=== PATIENT | female | born 1935 | race Caucasian/White ===

== ENCOUNTER → 2018-02-08 | Outpatient (CLI) | payer MEDICARE, BC ==
[~2018-02-08] MED LIST: ASPIRIN81 M2 PO; CALTRATE 600+D1 EAC1 PO; CENTRUM SILVER1 EAC4 PO; DULCOLAX5 MG PO; LOPRESSOR100 M1 PO; LOVASTATIN 20 M20 MG PO; MAXZIDE-25 MG1 EACH PO; OCUVITE TABLET1 EAC1 PO; OMEGA-31000 MG PO; PROBIOTIC1 EAC1 PO; SENOKOT-S1 TA1 PO; SUPER B COMPLE150 MG PO; VITAMIN D3400 UNIT PO; ZYRTEC10 M5 PO; ZYRTEC10 MG PO
== END ==
LOC: M.RAD 14:05
DX: Z12.31 Encounter for screening mammogram for malignant neoplasm of breast (principal); M81.0 Age-related osteoporosis without current pathological fracture

== ENCOUNTER → 2018-04-27 | Outpatient (CLI) | payer MEDICARE, BC ==
--- NOTE | 2018-04-27 15:46 | 2DMMODE ---
[place] [address] 2 D/M-MODE ECHOCARDIOGRAM Name: ADOLPH RAZA Room: [facility]#: [id number] Admission: 04/27/18 Attend Phys: Kathy Ramirez Discharge: Date of : 31 Date of Service: 04/27/18 1546 Report #: [id number] THIS REPORT FOR: //name// APPROVED REPORT Study performed: 04/27/2018 14:04:21 EXAM: Comprehensive 2D, Doppler, and color-flow Echocardiogram Patient Location: Out-Patient Status: routine BSA: 1.47 HR: 56 bpm BP: 122/66 mmHg Other Information Study Quality: Good Indications Murmur 2D Dimensions IVSd: 9.41 (7-11mm) LVOT Diam: 17.76 (18-24mm) LVDd: 40.24 mm PWd: 7.90 (7-11mm) Ascending Ao: 29.01 (22-36mm) LVDs: 21.45 (25-40mm) Aortic Root: 23.39 mm Volumes Left Atrial Volume (Systole) LA ESV Index: 28.30 mL/m2 Aortic Valve AoV Peak Marquise.: 3.33 m/s AO Peak Gr.: 44.24 mmHg LVOT Max P.12 mmHg AO Mean Gr.: 27.19 mmHg LVOT Mean P.45 mmHg LVOT Max V: 1.01 m/s AO V2 VTI: 92.11 cm LVOT Mean V: 0.74 m/s LUNA (VTI): 0.84 cm2 LVOT V1 VTI: 31.07 cm AI Hopkins: 2.80 m/s2 AI PHT: 493.34 ms Mitral Valve MV Peak Gr.: 9.79 mmHg MV Mean Gr.: 3.20 mmHg E/A Ratio: 1.07 [place] [address] 2 D/M-MODE ECHOCARDIOGRAM Name: ADOLPH RAZA Room: [facility]#: [id number] Admission: 04/27/18 Attend Phys: Kathy Ramirez Discharge: Date of : 31 Date of Service: 04/27/18 1546 Report #: [id number] MV Decel. Time: 211.34 ms MV E Max Marquise.: 1.35 m/s MV PHT: 61.29 ms MVA (PHT): 3.59 cm2 TDI E/Lateral E': 19.29 E/Medial E': 27.00 Medial E' Marquise.: 0.05 m/s Lateral E' Marquise.: 0.07 m/s Pulmonary Valve PV Peak Marquise.: 0.97 m/s PV Peak Gr.: 3.75 mmHg Tricuspid Valve RAP Estimate: 5.00 mmHg TR Peak Gr.: 32.13 mmHg RVSP: 37.13 mmHg PA Pressure: 37.13 mmHg Left Ventricle The left ventricle is normal size. There is normal LV segmental wall motion. There is normal left ventricular wall thickness. Left ventricular systolic function is normal. The left ventricular ejection fraction is within the normal range. LVEF is 60-65%. The left ventricular diastolic function is normal. Right Ventricle The right ventricle is normal size. The right ventricular systolic function is normal. Atria Left atrium is mildly dilated. The right atrium size is normal. Aortic Valve Aortic valve is moderately calcified. Moderate aortic regurgitation. Moderate aortic stenosis. Mitral Valve There is moderate mitral annular calcification. Mild to moderate mitral regurgitation. No evidence of mitral valve stenosis. Tricuspid Valve The tricuspid valve is normal in structure. Mild to moderate [place]icus[place] [address] 2 D/M-MODE ECHOCARDIOGRAM Name: ADOLPH RAZA Room: [facility]#: [id number] Admission: 04/27/18 Attend Phys: Kathy Ramirez Discharge: Date of : 31 Date of Service: 04/27/18 1546 Report #: [id number] Pulmonic Valve The pulmonary valve is normal in structure. Mild pulmonic regurgitation. Great Vessels The aortic root is normal in size. IVC is normal in size and collapses >50% with inspiration. Pericardium There is no pericardial effusion. <Conclusion> The left ventricle is normal size. There is normal left ventricular wall thickness. Left ventricular systolic function is normal. The left ventricular ejection fraction is within the normal range. LVEF is 60-65%. The left ventricular diastolic function is normal. The right ventricle is normal size. Left atrium is mildly dilated. Aortic valve is moderately calcified. Moderate aortic regurgitation. Moderate aortic stenosis. There is moderate mitral annular calcification. Mild to moderate mitral regurgitation. The tricuspid valve is normal in structure. Mild to moderate tricuspid regurgitation. IVC is normal in size and collapses >50% with inspiration. There is no pericardial effusion. There is normal LV segmental wall motion. <ELECTRONICALLY SIGNED> By: Gary Floyd MD, FACC 04/27/18 1546 1546 1546 Gary Floyd MD, FACC /INF
== END ==
LOC: M.CRD 13:41
DX: I08.2 Rheumatic disorders of both aortic and tricuspid valves (principal)

== ENCOUNTER 2018-09-05 09:31 | Emergency (ER) | payer MEDICARE, BC ==
[~2018-09-05] VITALS: Ht 152.4 cm; Wt 53.5 kg
[~2018-09-05 09:31] MED LIST changes: +Senokot-S PO
[2018-09-05] MEDS ORDERED: LOPRESSOR100 M1 PO (11:06)
[2018-09-05 12:01] VITALS: BP 198/52
== END 2018-09-05 12:01 | disposition home or self-care (01) ==
LOC: M.ERS 09:31
DX: R04.0 Epistaxis (principal); I10 Essential (primary) hypertension; E78.5 Hyperlipidemia, unspecified; M81.0 Age-related osteoporosis without current pathological fracture; Z85.038 Personal history of other malignant neoplasm of large intestine

== ENCOUNTER 2018-09-05 16:31 | Inpatient (IN) | payer MEDICARE, BC ==
[~2018-09-05] VITALS: Ht 147.3 cm; Wt 54.0 kg
--- NOTE | ~2018-09-05 | EEG ---
[address] [address] EEG STUDY REPORT Name: LUZ MARINAZENAIDACURT Gomez Room: [address] IN M.R.#: [id number] Admission: 09/05/18 Attend Phys: Dre Tucker MD Discharge: 09/07/18 Date of : 31 Report #: [id number] THIS REPORT FOR: //name// CC: Dre Ramirez DATE OF SERVICE: 09/07/2018 This patient had an episode of slurred speech. EEG was done by placing the electrode by standard 10-20 system of electrode placement. Both referential and sequential montages were used for recording. Background activity in this patient's EEG is about 10-11 Hz and 40 microvolt. The patient went to sleep and that is associated with bilaterally symmetrical slowing and vertex sharp waves. Throughout the record, no active epileptiform activity was noted. IMPRESSION: This patient's EEG is unremarkable. No nonconvulsive seizures to explain the patient's episode of speech difficulty was noticed during this record. Thank you very much for this referral. By: 1642 [id number] Plunkett MD /nt
--- NOTE | ~2018-09-05 | CON ---
[address] [address] CONSULTATION Name: ADOLPH RAZA Room: [address] IN M.R.#: [id number] Admission: 09/05/18 Attend Phys: Dre Tucker MD Discharge: Date of : 31 Report #: [id number] THIS REPORT FOR: //name// CC: Dre Ramirez DATE OF SERVICE: 09/06/2018 HISTORY OF PRESENT ILLNESS: This is an 82-year-old female patient who was admitted with somewhat of an unusual history. History is not cleared. Apparently, slurred speech and right facial droop was noticed. The patient used to be on baby aspirin. She ran out of it and she had started taking a full aspirin and she had epistaxis and she was sent home and then she came with these symptoms. Symptoms resolved. She was reasonably functional before this episode happened. REVIEW OF SYSTEMS: Positive for hypertension, hyperlipidemia, cataract removal, osteoporosis, and colon cancer. A 14-point review of system was otherwise noncontributory. She still is somewhat confused, but she denies any eye, ENT, cardiac, respiratory, GI, , musculoskeletal, constitutional, dermatological, hematological, psychiatric, throat, allergic symptom associated with present symptomatology. PAST MEDICAL HISTORY: Positive for epistaxis. FAMILY HISTORY: Positive for strokes and she is worried about that. SOCIAL HISTORY: She does not smoke. PHYSICAL EXAMINATION: NEUROLOGIC: Indicate she is alert and responsive. She can follow simple commands. Speech looks intact, but memory and fund of knowledge is diminished. Cranial nerve examination 2-12 does not show any definite abnormality. Neuromuscular examination checked for strength, sensation, reflexes and tone is symmetrical. No cerebellar sign. No meningeal sign. LUNGS: The patient does not have any respiratory difficulty. CARDIAC: Showed some murmur. EXTREMITIES: Pulses are palpable. No edema, cyanosis, or jaundice. VITAL SIGNS: Blood pressure is 139/41, respirations 20, pulse is 58, and temperature is 99.8. DIAGNOSTIC DATA: I reviewed this patient's extensive workup including MRI and MRA that does not show any acute stroke. IMPRESSION AND PLAN: I am not sure what the etiology of the patient's symptom is. So far, there is no evidence that this patient had a stroke[place] [address] CONSULTATION Name: LUZ MARINAADOLPH Gomez Room: [address] IN [facility].#: [id number] Admission: 09/05/18 Attend Phys: Dre Tucker MD Discharge: Date of : 33 Report #: [id number] already on aspirin. We will see what LDL shows and see if we need to start the patient on some other treatment. I discussed all of this with the patient. I am going to get an EEG done since MRI did not show any stroke and we need to look for any alternate cause for the patient's symptom. Thank you very much for this referral and if you have any question, please feel free to contact me. By: 1047 [id number] Plunkett MD /nt
[2018-09-05 16:37] VITALS: BP 112/88
[2018-09-05 17:00] LABS: ABSOLUTE BASOPHILS 0.1 thou/uL (0.0-0.2); ABSOLUTE EOSINOPHILS 0.2 thou/uL (0.0-0.7); ABSOLUTE LYMPHOCYTES 2.2 thou/uL (0.8-5.3); ABSOLUTE NEUTROPHILS 6.8 thou/uL (1.6-8.1); EOSINOPHILS 1.9 %; HEMATOCRIT 36.9 % (37.0-47.0); HEMOGLOBIN 12.7 gm/dL (12.0-15.0); LYMPHOCYTES 21.5 %; MCH 31.5 pg (26.0-34.0); MCHC 34.3 g/dL (28.0-37.0); MCV 91.7 fL (80.0-100.0); MONOCYTES 9.7 %; MPV 8.8 fl. (7.2-11.1); NUCLEATED RBCS 0 /100WBC; PLATELET COUNT* 264 thou/uL (150-400); POLYS 65.9 %; RBC 4.02 mil/uL (4.20-5.00); RDW-CV 12.6 % (10.5-14.5); WBC 10.4 thou/uL (4.0-11.0)
[2018-09-05 17:08] LABS: ANION GAP 9 mmol/L (7-16); BUN 36 mg/dL (7-18); CALCIUM 10.2 mg/dL (8.5-10.1); CHLORIDE 101 mmol/L (98-107); CO2 29 mmol/L (21-32); CREATININE 1.5 mg/dL (0.6-1.3); GLUCOSE 118 mg/dL (70-99); POTASSIUM 3.9 mmol/L (3.5-5.1); SODIUM 139 mmol/L (136-145)
[2018-09-05 17:10] LABS: APTT 26.3 Seconds (25.0-31.3); INR 1.1; PROTIME 10.8 Seconds (9.20-11.50)
[2018-09-05 17:17] LABS: ALBUMIN 4.1 g/dL (3.4-5.0); ALKALINE PHOSPHATASE 74 U/L (46-116); SGOT 23 U/L (15-37); SGPT 20 U/L (30-65); TOTAL BILIRUBIN 0.6 mg/dL (<0.1-1.0); TOTAL PROTEIN 7.7 g/dL (6.4-8.2); TROPONIN-I LEVEL <0.06 ng/mL (<0.06)
[2018-09-05 20:56] LABS: URINE BILIRUBIN NEGATIVE (Negative); URINE BLOOD NEGATIVE (Negative); URINE CLARITY CLEAR; URINE COLOR YELLOW; URINE GLUCOSE-RANDOM NEGATIVE (Negative); URINE KETONES NEGATIVE (Negative); URINE LEUKOCYTES-REFLEX NEGATIVE (Negative); URINE NITRITE-REFLEX NEGATIVE (Negative); URINE PROTEIN NEGATIVE (Negative); URINE SPECIFIC GRAVITY 1.015 (1.005-1.030); URINE UROBILINOGEN 0.2 E.U./dl (0.2-1.0)
[2018-09-05 23:52] VITALS: BP 135/42
[2018-09-06 03:04] VITALS: BP 117/30
[2018-09-06 07:06] VITALS: BP 139/41
[2018-09-06 07:58] LABS: HEMATOCRIT 34.6 % (37.0-47.0); HEMOGLOBIN 11.7 gm/dL (12.0-15.0); MCH 31.3 pg (26.0-34.0); MCHC 33.9 g/dL (28.0-37.0); MCV 92.3 fL (80.0-100.0); MPV 8.5 fl. (7.2-11.1); RBC 3.75 mil/uL (4.20-5.00); RDW-CV 12.5 % (10.5-14.5); WBC 8.1 thou/uL (4.0-11.0)
[2018-09-06 08:02] LABS: CALCIUM 8.6 mg/dL (8.5-10.1); CREATININE 1.1 mg/dL (0.6-1.3); MAGNESIUM 1.8 mg/dL (1.8-2.4); POTASSIUM 3.5 mmol/L (3.5-5.1)
[2018-09-06 08:07] LABS: CHOLESTEROL 151 mg/dL (<200); HDL CHOLESTEROL 40 mg/dL (>40); LDL CHOLESTEROL 83 mg/dL (<100); TC:HDL 3.8 Ratio (Not establshd); TRIGLYCERIDE 141 mg/dL (<150); VLDL 28 mg/dL (<40)
[2018-09-06 08:09] LABS: SERUM ASSESSMENT Clear
[2018-09-06 11:01] VITALS: BP 147/46
--- NOTE | 2018-09-06 14:35 | EKG ---
[place] [address] ELECTROCARDIOGRAM REPORT Name: FLOYDADOLPH ANDREWS Room: [place] [address] ADM IN .R.#: [id number] Admission: 09/05/18 Attend Phys: Dre Tucker MD Discharge: Date of : 33 Report #: [id number] THIS REPORT FOR: //name// [facility] ED Test Date: 2018-09-05 Test Time: 16:52:06 Pat Name: ADOLPH RAZA Department: Room: [place] [address] Gender: F [employer] Counselor: PASCALE : 1935 Requested By: Dre Tucker Order Number: [id number] Josesito MD: Tl Sun Measurements Intervals [place] Rate: 50 P: 268 [place]: 127 QRS: 63 QRSD: 99 T: 27 QT: 491 QTc: 448 Interpretive Statements Sinus bradycardia Minimal ST depression, lateral leads No previous ECG available for comparison Electronically Signed On 09-06-2018 14:35:45 CDT by Tl Sun [email or web address] <ELECTRONICALLY SIGNED> By: Tl Sun MD, [facility] 09/06/18 1435 1652 51 Tl Sun MD, FACC /EPI
[2018-09-06 14:50] VITALS: BP 136/35
[2018-09-06 15:05] LABS: GLYCOHEMOGLOBIN (HGB A1C) 5.7 % (4.8-5.6)
--- NOTE | 2018-09-06 16:10 | 2DMMODE ---
[place] [address] 2 D/M-MODE ECHOCARDIOGRAM Name: ADOLPH RAZA Room: [address] IN .R.#: [id number] Admission: 09/05/18 Attend Phys: Dre Tucker, Discharge: Date of : 31 Date of Service: 09/06/18 1610 Report #: [id number] THIS REPORT FOR: //name// APPROVED REPORT Study performed: 09/06/2018 09:51:41 EXAM: Comprehensive 2D, Doppler, and color-flow Echocardiogram Patient Location: In-Patient Status: routine BSA: 1.45 HR: 64 bpm BP: 139/41 mmHg Rhythm: NSR Other Information Study Quality: Good Indications CVA/TIA Echo Enhancing Agent Indication: Rule out Shunt Agent(s) / Amount(s) Used: Agitated Saline 10 cc 2D Dimensions IVSd: 11.49 (7-11mm) LVOT Diam: 15.82 (18-24mm) LVDd: 35.85 mm PWd: 10.42 (7-11mm) Ascending Ao: 30.68 (22-36mm) LVDs: 16.41 (25-40mm) Aortic Root: 25.38 mm Volumes Left Atrial Volume (Systole) LA ESV Index: 59.50 mL/m2 Aortic Valve AoV Peak Marquise.: 3.96 m/s AO Peak Gr.: 62.73 mmHg LVOT Max P.66 mmHg AO Mean Gr.: 36.75 mmHg LVOT Mean P.17 mmHg LVOT Max V: 1.29 m/s AO V2 VTI: 103.81 cm LVOT Mean V: 0.81 m/s LUNA (VTI): 0.69 cm2 LVOT V1 VTI: 36.[address] [place]: 2.84 m/s2 [place] [address] 2 D/M-MODE ECHOCARDIOGRAM Name: ADOLPH RAZA Room: [address] IN .R.#: [id number] Admission: 09/05/18 Attend Phys: Dre Tucker, Discharge: Date of : 31 Date of Service: 09/06/18 1610 Report #: [id number] AI PHT: 396.90 ms Mitral Valve MV Mean Gr.: 5.43 mmHg E/A Ratio: 0.84 MV Decel. Time: 340.00 ms MV E Max Marquise.: 1.28 m/s MV PHT: 98.60 ms MVA (PHT): 2.23 cm2 TDI E/Lateral E': 25.60 E/Medial E': 25.60 Medial E' Marquise.: 0.05 m/s Lateral E' Marquise.: 0.05 m/s Pulmonary Valve PV Peak Marquise.: 1.05 m/s PV Peak Gr.: 4.42 mmHg Tricuspid Valve RAP Estimate: 5.00 mmHg TR Peak Gr.: 38.05 mmHg RVSP: 43.00 mmHg PA Pressure: 43.00 mmHg Left Ventricle The left ventricle is normal size. There is normal LV segmental wall motion. Mild concentric left ventricular hypertrophy. Left ventricular systolic function is normal. The left ventricular ejection fraction is within the normal range. LVEF is >70%. Grade I - abnormal relaxation pattern. Right Ventricle The right ventricle is normal size. The right ventricular systolic function is normal. Atria Left atrium is severely dilated. Interatrial septum is intact without evidence of ASD or PFO. The right atrium size is normal. Aortic Valve Aortic valve leaflets are moderately thickened. Moderate aortic regurgitation. severe aortic stenosis. Mitral Valve Moderate mitral annular calcification. Moderate mitral regurgitation. No evidence of mitral valve stenosis. [place]ric[place] [address] 2 D/M-MODE ECHOCARDIOGRAM Name: ADOLPH RAZA Room: [address] IN [facility]#: [id number] Admission: 09/05/18 Attend Phys: Dre Tucker, Discharge: Date of : 31 Date of Service: 09/06/18 1610 Report #: [id number] The tricuspid valve is normal in structure. Mild tricuspid regurgitation. estimated pa pressure 45 mm Hg Pulmonic Valve The pulmonary valve is normal in structure. Mild pulmonic regurgitation. Great Vessels The aortic root is normal in size. IVC is normal in size and collapses >50% with inspiration. Pericardium There is no pericardial effusion. <Conclusion> Mild concentric left ventricular hypertrophy. LVEF is >70%. Left atrium is severely dilated. Moderate aortic regurgitation. severe aortic stenosis. Moderate mitral regurgitation. Interatrial septum is intact without evidence of ASD or PFO. Mild tricuspid regurgitation. estimated pa pressure 45 mm Hg <ELECTRONICALLY SIGNED> By: Tl Sun MD, FACC 09/06/18 161 09 09 Tl Sun MD, FACC /INF
[2018-09-06 19:30] VITALS: BP 150/51
[2018-09-07 00:29] VITALS: BP 151/46
[2018-09-07 04:00] VITALS: BP 179/61
[2018-09-07] MEDS ORDERED: ADULT LOW DOSE81 MG PO (10:48)
[2018-09-07 15:47] VITALS: BP 150/43
[2018-09-07 16:12] VITALS: BP 150/43
== END 2018-09-07 16:39 | disposition home or self-care (01) | DRG 69 ==
LOC: M.ERS 16:31 → M.2W 18:26 → M.TBA-ER 18:26 → M.2W 09-06 06:20 → M.TBA-ER 09-06 06:20 → M.2W 09-06 15:09
PROVIDERS: Personal Emergency Response Attendant; ADMIT Internal Medicine
DX: G45.9 Transient cerebral ischemic attack, unspecified (principal); G92 Toxic encephalopathy; N17.0 Acute kidney failure with tubular necrosis; M81.0 Age-related osteoporosis without current pathological fracture; N18.3 Chronic kidney disease, stage 3 (moderate); I27.20 Pulmonary hypertension, unspecified; I08.3 Combined rheumatic disorders of mitral, aortic and tricuspid valves; I12.9 Hypertensive chronic kidney disease with stage 1 through stage 4 chronic kidney disease, or unspecified chronic kidney disease; E78.5 Hyperlipidemia, unspecified; Z98.41 Cataract extraction status, right eye; Z98.42 Cataract extraction status, left eye; Z85.038 Personal history of other malignant neoplasm of large intestine; Z79.82 Long term (current) use of aspirin; Z79.899 Other long term (current) drug therapy; Z82.3 Family history of stroke

== ENCOUNTER 2019-03-22 09:01 | Inpatient (IN) | payer MEDICARE, BC ==
[~2019-03-22] VITALS: Ht 144.8 cm; Wt 54.9 kg
--- NOTE | ~2019-03-22 | CON ---
[address] [address] CONSULTATION Name: ADOLPH RAZA Room: [address] IN ..#: [id number] Admission: 03/22/19 Attend Phys: Jason Suazo Discharge: Date of : 33 Report #: [id number] THIS REPORT FOR: //name// CC: Kathy Sotelo DATE OF SERVICE: 03/23/2019 NEPHROLOGY CONSULTATION CONSULTING PHYSICIAN: Jenelle Sotelo MD REASON FOR NEPHROLOGY CONSULTATION: Acute kidney injury, microscopic hematuria. REASON FOR ADMISSION: The patient was sent to the ED because of abnormal labs and because of blood in her urine. HISTORY OF PRESENT ILLNESS: This is an 83-year-old female who lives by herself. Her son lives close to her, but she has a past medical history of hypertension, hypokalemia, TIA, torticollis, was asked to come to the hospital by her PCP because her labs showed blood in her urine and elevated creatinine of 9.0. Her baseline creatinine 1.1 in 08/2018. Her daughter is at the bedside. The patient is very weak and she is hard of hearing. According to daughter, the patient has not been eating and when she saw her PCP last Thursday, she had lost about 10 pounds since Thanksgiving because of not eating. When the patient presented to the hospital yesterday, her potassium was 2.6 and her creatinine was 9.0, her BUN was 111. She was started on IV fluids. Potassium was replaced. Her creatinine is better this morning 8.1. She does take triamterene/hydrochlorothiazide at home. She states that she takes NSAIDs periodically, but her history is not completely reliable because she cannot remember it. She reports no urinary problems. REVIEW OF SYSTEMS: Limited because of her mental status. ALLERGIES: TO CONTRAST DYE, LIPOSOMAL SHINGRIX. HOME MEDICATIONS: Include aspirin, triamterene/hydrochlorothiazide, lovastatin, cetirizine, metoprolol, Senokot, bisacodyl, multivitamin with minerals. PAST MEDICAL AND SURGICAL HISTORY: Includes hypertension, hyperlipidemia, osteoporosis, ____, colon cancer with colon resection in 07/2013, cataract removal, mitral and tricuspid regurgitation, moderate aortic stenosis. FAMILY HISTORY: Stroke. SOCIAL HISTORY: She lives at home by herself. [place] a [place] [address] CONSULTATION Name: ADOLPH RAZA Jason Room: [address]#: [id number] Admission: 03/22/19 Attend Phys: Jason Suazo Discharge: Date of : 33 Report #: [id number] daughter and son. She does not smoke or take alcohol or use illicit drugs. PHYSICAL EXAMINATION: VITAL SIGNS: Her blood pressure is 156/61, her respiratory rate is 16, her pulse rate is 93, temperature 36.6, her pulse ox is 99%, she is on room air. GENERAL: She is awake, alert and oriented x 3, just slow to respond and she is hard of hearing. HEAD AND EYES: Atraumatic, normocephalic and normal conjunctivae. EARS, NOSE, AND THROAT: Normal ears and nose. Mucous membranes are dry. NECK: No JVD. CHEST: Bilaterally clear to auscultation anteriorly. No crackles or wheezing. CARDIOVASCULAR: S1, S2 normal. No murmurs. ABDOMEN: Soft, nondistended, nontender. Bowel sounds are present. EXTREMITIES: Lower extremities: There is no lower extremity edema. SKIN: Turgor is decreased. Skin is dry. NEUROLOGICAL FUNCTION: She has generalized weakness. PSYCHIATRIC: Mood-peters, she seems to be normal. LABORATORY DATA: Her white count is 11.1, her hemoglobin is 11.7. Her sodium is 138, her potassium is 3.1. Her BUN is 109 and creatinine is 8.1 and other labs were reviewed. IMAGING: Abdominal and pelvic CT scan was reviewed. ASSESSMENT: 1. Acute kidney injury in the setting of volume depletion, severe dehydration and the use of triamterene/hydrochlorothiazide at home. Urine shows evidence of 6-15 wbc's per high-power field, 2+ protein, 3+ blood with 3-10 rbc's per high-power field with hyaline casts. Renal imaging on CT scan showed no hydronephrosis. 2. Hypokalemia because of poor oral intake. 3. Constipation, abdominal CT scan, primary team will be managing that. 4. Anion gap metabolic acidosis with metabolic alkalosis. Former is because of acute kidney injury. The latter is because of intravascular volume depletion. 5. Elevated troponin, will defer to primary for management of that. 6. History of hypertension. Blood pressure is currently controlled. 7. Microscopic hematuria. PLAN: 1. Creatinine so far is improving with IV fluids. 2. Potassium to be replaced. 3. We will send serological workup for hematuria, but looks like her acute kidney injury is related to volume depletion. 4. Strict I's and O's. Her baseline creatinine is 1.1 in 08/2018. [place] [address] CONSULTATION Name: ADOLPH RAZA Jason Room: [address] IN [facility].#: [id number] Admission: 03/22/19 Attend Phys: Jason Suazo Discharge: Date of : 33 Report #: [id number] Thank you for this consultation. We will continue to follow along with you. Discussed with the patient and the patient's daughter. By: 1029 [id number] Samaniego MD /fabi
[~2019-03-22 09:01] MED LIST changes: +ADULT LOW DOSE81 MG PO; +LIPITOR40 MG PO; -LOVASTATIN 20 M20 MG PO
[2019-03-22 09:13] VITALS: BP 108/45
[2019-03-22 09:46] LABS: URINE BILIRUBIN NEGATIVE (Negative); URINE BLOOD 3+ (Negative); URINE CLARITY CLEAR; URINE COLOR YELLOW; URINE GLUCOSE-RANDOM NEGATIVE (Negative); URINE KETONES NEGATIVE (Negative); URINE LEUKOCYTES-REFLEX TRACE (Negative); URINE NITRITE-REFLEX NEGATIVE (Negative); URINE PROTEIN 2+ (Negative); URINE SPECIFIC GRAVITY 1.025 (1.005-1.030); URINE UROBILINOGEN 0.2 E.U./dl (0.2-1.0)
[2019-03-22 09:52] LABS: AMORPHOUS URATES Few /LPF (None Seen); HYALINE CASTS 0-3 Few /LPF (None Seen); MUCUS 4-6 Moderate strn/LPF (None Seen); SQUAMOUS 0-3 Few /LPF (0-3); URINE RBC 3-10 Few /HPF (0-2); URINE WBC-REFLEX 6-15 Few /HPF (0-5)
[2019-03-22 10:16] LABS: ABSOLUTE BASOPHILS 0.1 thou/uL (0.0-0.2); ABSOLUTE EOSINOPHILS 0.3 thou/uL (0.0-0.7); ABSOLUTE LYMPHOCYTES 1.4 thou/uL (0.8-5.3); ABSOLUTE MONOCYTES 0.9 thou/uL (0.0-1.2); ABSOLUTE NEUTROPHILS 8.4 thou/uL (1.6-8.1); BASOPHILS 1.3 %; EOSINOPHILS 2.5 %; HEMATOCRIT 33.7 % (37.0-47.0); HEMOGLOBIN 11.7 gm/dL (12.0-15.0); LYMPHOCYTES 12.9 %; MCH 30.4 pg (26.0-34.0); MCHC 34.7 g/dL (28.0-37.0); MCV 87.8 fL (80.0-100.0); MONOCYTES 8.1 %; MPV 8.7 fl. (7.2-11.1); NUCLEATED RBCS 0 /100WBC; PLATELET COUNT* 452 thou/uL (150-400); POLYS 75.2 %; RBC 3.84 mil/uL (4.20-5.00); RDW-CV 12.7 % (10.5-14.5); WBC 11.1 thou/uL (4.0-11.0)
[2019-03-22 10:19] LABS: CALCIUM 6.6 mg/dL (8.5-10.1)
[2019-03-22 10:21] LABS: POTASSIUM 2.6 mmol/L (3.5-5.1)
[2019-03-22 10:24] LABS: ALBUMIN 3.4 g/dL (3.4-5.0); TOTAL BILIRUBIN 0.5 mg/dL (<0.1-1.0); TOTAL PROTEIN 8.1 g/dL (6.4-8.2)
[2019-03-22 11:58] VITALS: BP 130/43
--- NOTE | 2019-03-22 13:00 | NUR ---
PT TO ROOM 207 VIA CART. PT A&OX4. FAMILY AY BS. PT ORIENTED TO ROOM,CALL LIGHT WITHIN REACH. IVF INFUSING. KCL STARTED. PT REMAINS NPO AT THIS TIME PENDING DR HERRMANN
[2019-03-22 14:00] VITALS: BP 122/40
--- NOTE | 2019-03-22 16:45 | NUR ---
MULTIPLE ATTEMPTS TO PLACE BOYKIN CATHETER UNSUCESSFUL
[2019-03-22 19:00] LABS: CREATININE 8.1 mg/dL (0.6-1.3); POTASSIUM 3.1 mmol/L (3.5-5.1)
[2019-03-22 20:00] VITALS: BP 125/48
[2019-03-23] VITALS: BP 138/43
[2019-03-23 04:00] VITALS: BP 144/57
--- NOTE | 2019-03-23 05:10 | NUR ---
PT RECIEVED ORDER FOR LAXATIVES AND ENEMA. ADMINISTERED AT START OF SHIFT WITH WHICH PRODUCED BOWEL MOVEMENT QUICKLY. PT HAD NUMEROUS BOWEL MOVEMENTS WITH MIX OF LOOSE WATER STOOLS AND HARD ROUND STOOL. PT IS STB BUT DOES NOT USE CALL LIGHT APPROPRIATELY AND ATTEMPTS TO GET UP ALONE BUT IS A HIGH FALL RISK. PT IS CURRENTLY ASLEEP WITH BED ALARM ON AND CALL LIGHT WITHIN REACH. DAUGHTER AT BEDSIDE.
[2019-03-23 08:00] VITALS: BP 156/61
[2019-03-23 11:16] VITALS: BP 123/53
[2019-03-23 15:23] LABS: ALBUMIN 2.8 g/dL (3.4-5.0); PHOSPHORUS* 8.7 mg/dL (2.5-4.9)
[2019-03-23 15:24] LABS: CALCIUM 5.6 mg/dL (8.5-10.1)
[2019-03-23 17:34] VITALS: BP 126/43
[2019-03-23 18:35] LABS: CREATININE 6.6 mg/dL (0.6-1.3); POTASSIUM 3.8 mmol/L (3.5-5.1)
[2019-03-23 18:36] LABS: CALCIUM 5.8 mg/dL (8.5-10.1)
[2019-03-23 20:00] VITALS: BP 138/58
[2019-03-24] VITALS: BP 144/57
[2019-03-24 04:00] VITALS: BP 108/63
--- NOTE | 2019-03-24 05:08 | NUR ---
AT START OF SHIFT IV AND INFILTRATED, PLACED NEW IV TO LEFT HAND. PT DC'D LEFT HAND IV WHEN ATTEMPTING TO GET OUT OF BED. NEW IV PLACED TO LEFT FORARM AND SECURRED. PT MAKING MULTIPLE ATTEMPTS TO GET OUT OF BED, BED ALARM IS ON AND SIDERAILS ARE UP X4. PT C/O ANXIETY AND PAIN, NOTIFIED BRICK AND TILE MAKING MACHINE OPERATOR PHYSICAIN AND AWAITING ORDERS FOR PT. PT IS CURRENTLY ASLEEP WITH BED ALARM ON AND CALL LIGHT WITHIN REACH.
[2019-03-24 05:28] LABS: PHOSPHORUS* 6.9 mg/dL (2.5-4.9)
[2019-03-24 05:36] LABS: CALCIUM 5.5 mg/dL (8.5-10.1)
[2019-03-24 07:00] VITALS: BP 117/54
--- NOTE | 2019-03-24 08:50 | NUR ---
INITAL ASSESSMENT COMPLETED CHARTED. VSS. TRACING SR ON MONITOR. PT DENIES PAIN, CP, SOA, N/V/D. MEDS GIVEN PER EMAR. NO NEW CONCERNS. REFER TO COMPUTER CHARTING FOR FURTHER DETAILS. HOURLY ROUNDING AND FALL PRECAUTIONS IN PLACE FOR PT SAFETY. CLWR.
[2019-03-24 12:16] VITALS: BP 156/59
--- NOTE | 2019-03-24 12:17 | EKG ---
[place] [address] ELECTROCARDIOGRAM REPORT Name: ADOLPH RAZA Room: [address] ADM IN .R.#: [id number] Admission: 03/22/19 Attend Phys: Jason Suazo Discharge: Date of : 31 Report #: [id number] THIS REPORT FOR: //name// [facility] ED Test Date: 2019-03-22 Test Time: 09:14:35 Pat Name: ADOLPH RAZA Department: Room: [facility] Gender: F Needle Control Cheniller: : 1935 Requested By: Matthew Negrete Order Number: [id number] MD: Gary Floyd Measurements Intervals [place] Rate: 60 P: 10 DE: 215 QRS: 46 QRSD: 108 T: -32 QT: 514 QTc: 514 Interpretive Statements Sinus rhythm Atrial premature complex Borderline prolonged DE interval Probable LVH with secondary repol abnrm Prolonged QT interval Baseline wander in lead(s) V2 Compared to ECG 09/05/2018 16:52:06 Atrial premature complex(es) now present Prolonged QT interval now present Sinus bradycardia no longer present ST (T wave) deviation more prominent Electronically Signed On 03-24-2019 12:16:49 VERIFICATION REP by Gary Floyd [email or web address] <ELECTRONICALLY SIGNED> By: Gary Floyd MD, [facility] 03/24/19 1216 3 3 Gary Floyd MD, [facility] /EPI
[2019-03-24 16:06] LABS: COMPLEMENT-C4 35 mg/dL (14-44); IgA 355 mg/dL (64-422); IgG 741 mg/dL (700-1600); IgM 57 mg/dL (26-217)
--- NOTE | 2019-03-24 16:14 | NUR ---
SW met with pt and pt dtr in law Delisa to complete initial assessment, introduce self, and SW role. Pt [place] and does not often wear her hearing aids. Pt and pt dtr in law were talkative. Pt lives alone with her cat Josiah, whom the pt says that the cat helps pt wake up and go to bed everyday. Pt lives in a duplex that is maintenance free. Pt son and dtr in law are supportive and they check on pt everyday. Pt son and dtr in law also help provide meals and drive pt to doctors appts. Pt still drives some to grocery store (pt dtr in law said that they are discussing whether or not pt should continue driving). Pt does not have any DME but now has cane that pt is borrowing from her dtr in law. Pt is concerned with the use of her right arm as it is sore. Pt hopeful to dc home alone soon; pt dtr in law said that pt is not completely aware of pt medical situation. SW to continue to follow to assist with safe dc planning; goal would be for pt to be able to dc home alone with family support at times. Possible need/pt family interest for HH services at dc.
[2019-03-24 17:19] VITALS: BP 129/58
[2019-03-24 20:00] VITALS: BP 141/61
[2019-03-25] VITALS (11 sets, daily range): BP systolic 102–177; BP diastolic 45–83
--- NOTE | 2019-03-25 04:34 | NUR ---
PT DID EXPERINCE SOME ANXIETY AND TROUBLE SLEEPING. RECIEVED ORDER FOR PRN MEDICATION. PT HAS HAD NO EPISODES OF IMPULSIVE BEHAVIORS THIS SHIFT. STATES SHE IS FEELING BETTER AND WANTS TO GO HOME. PT IS CURRENTLY ASLEEP IN BED WITH BED ALARM ON AND CALL LIGHT WITHIN REACH.
[2019-03-25 06:02] LABS: CALCIUM 6.3 mg/dL (8.5-10.1); CREATININE 5.4 mg/dL (0.6-1.3); MAGNESIUM 1.3 mg/dL (1.8-2.4); PHOSPHORUS* 5.2 mg/dL (2.5-4.9); POTASSIUM 3.3 mmol/L (3.5-5.1)
[2019-03-25 13:12] LABS: ANA INTERPRETATION Negative (Negative)
[2019-03-25 15:08] LABS: KAPPA FREE LIGHT CHAINS 62.7 mg/L (3.3-19.4); LAMBDA FREE LIGHT CHAINS 21.3 mg/L (5.7-26.3)
[2019-03-25 17:37] LABS: HEMATOCRIT 28.2 % (37.0-47.0); HEMOGLOBIN 9.7 gm/dL (12.0-15.0); MCH 30.8 pg (26.0-34.0); MCHC 34.5 g/dL (28.0-37.0); MCV 89.3 fL (80.0-100.0); MPV 8.6 fl. (7.2-11.1); RBC 3.16 mil/uL (4.20-5.00); RDW-CV 12.8 % (10.5-14.5); WBC 13.9 thou/uL (4.0-11.0)
[2019-03-25 17:45] LABS: CALCIUM 7.8 mg/dL (8.5-10.1); MAGNESIUM 2.8 mg/dL (1.8-2.4); POTASSIUM 3.6 mmol/L (3.5-5.1)
[2019-03-25 17:46] LABS: INR 1.3; PROTIME 12.8 Seconds (9.20-11.50)
--- NOTE | 2019-03-25 20:10 | NUR ---
PATIENT ASLEEP IN BED WITH FAMILY AT BEDSIDE. PATIENT AMBULATING WITH ASSISTANCE, GAIT BELT, AND WALKER THIS MORNING IN ROOM. ALL SAFETY MEASURES MAINTAINED. DR. LAI AND CHARGE NURSE NOTIFIED OF ABNORMAL TELE READINGS. NEW ORDERS RECEIVED.
[2019-03-25 22:06] LABS: HEPATITIS B SURFACE AG Negative (Negative)
[2019-03-26] VITALS (7 sets, daily range): BP systolic 103–163; BP diastolic 47–73
--- NOTE | 2019-03-26 02:31 | NUR ---
PT INITALLY DROWSEY ORIENTED. BECAME MORE CONFUSED NIGHT PROGRESSED. REORIENTS EASILY. INITAL ASSESSMENT NABICARB HANGING BUT NOT INFUSING. RN SAW ORDER FOR IT IN MAY. CALLED DR LAI TO MAKE SURE IT DID NOT GET DC'D. MEDICATION NOT DC'D. IV PLACED AND NABICARB RESTARTED. DR LAI ALSO ORDERED TROP SERIES. CAME BACK CRITICAL AT 3.62. DR NICHOLS NOTIFIED. MORPHINE ORDERED FOR CHRONIC R SHOULDER PAIN. PT REFUSED MORPHINE. HEPARIN QTT INFUSING. PT CALLED OUT SHE HAD DC'D IV. IV REPLACED. BOYKIN WITH CLEAR YELLOW. TELEMETRY SHOWS AFIB 90S. WCTM.
[2019-03-26 07:05] LABS: CALCIUM 6.6 mg/dL (8.5-10.1); CREATININE 4.3 mg/dL (0.6-1.3)
[2019-03-26 07:22] LABS: POTASSIUM 2.7 mmol/L (3.5-5.1)
[2019-03-26 10:10] LABS: POTASSIUM 3.1 mmol/L (3.5-5.1)
--- NOTE | 2019-03-26 10:17 | CON ---
[address] [address] CONSULTATION Name: ADOLPH RAZA Room: [address] IN ..#: [id number] Admission: 03/22/19 Attend Phys: Jason Suazo Discharge: Date of : 33 Report #: [id number] THIS REPORT FOR: //name// CC: Kathy Sotelo CARDIOLOGY CONSULTATION HISTORY OF PRESENT ILLNESS: The patient is a pleasant 83-year-old female, admitted on 03/22/2019 because of renal failure and electrolyte imbalance. In the hospital, she has demonstrated both atrial dysrhythmias and this afternoon ventricular tachycardia and thus, we were asked to see her. She denies chest discomfort, but notes some dyspnea. She denies history of prior myocardial infarction. Today, the patient was noted to be hypokalemic and hypomagnesemic and received bolus as well as calcium infusion. PHYSICAL EXAMINATION: GENERAL: Reveals a modestly distressed, hard of hearing, elderly female. VITAL SIGNS: Blood pressure is 120/70, pulse rate is 123 and regular, and respirations are 22 per minute. NECK: Jugular venous pressure is difficult to ascertain. CHEST: Clear anteriorly. CARDIAC: Reveals a rapid regular rhythm with a soft systolic murmur. ABDOMEN: Mildly obese and nontender. EXTREMITIES: Satisfactorily perfused. LABORATORY DATA: Electrocardiogram from this afternoon demonstrates sinus rhythm, nonspecific intraventricular conduction delay, and inferior ST segment elevation with high lateral depression suggesting acute inferior wall injury. Rhythm strips were reviewed. There is evidence of ventricular tachycardia at a rate of greater than 150 for approximately 2 minutes. Creatinine is elevated at 5.4. Magnesium is suppressed at 1.3. IMPRESSION: 1. Ventricular tachycardia. 2. Probable acute inferior wall myocardial infarction. 3. Renal failure with recent creatinine of 5.4. 4. Electrolyte imbalance with hypokalemia and hypomagnesemia. RECOMMENDATIONS: [address] [place] [address] CONSULTATION Name: ADOLPH RAZA Room: [address] IN [facility]#: [id number] Admission: 03/22/19 Attend Phys: Jason Suazo Discharge: Date of : 33 Report #: [id number] 1. Given the overall circumstance, I would not recommend proceeding with an invasive evaluation. 2. Agree with correction of electrolytes. 3. Would infuse the IV beta blockade to moderate her rate. 4. Attention to fluid balance. 5. Correction of electrolytes is underway. 6. I would not give amiodarone at this point unless there are recurrent episodes of VT after beta blockade and correction of electrolyte imbalance. 7. Echocardiogram is indicated. 8. Would proceed with heparinization, antiplatelet therapy and beta blockade as noted above. Critical care time is 32 minutes from [id number] on 03/25/2019. <ELECTRONICALLY SIGNED> By: Gary Floyd MD, [facility] 03/26/19 1017 1632 [id number] Floyd MD, FACC /nt
[2019-03-26 12:35] LABS: HEMATOCRIT 25.8 % (37.0-47.0); MCH 30.9 pg (26.0-34.0); MCHC 34.8 g/dL (28.0-37.0); MCV 88.6 fL (80.0-100.0); MPV 9.2 fl. (7.2-11.1); NUCLEATED RBCS 0 /100WBC; PLATELET COUNT* 333 thou/uL (150-400); RBC 2.92 mil/uL (4.20-5.00); RDW-CV 12.8 % (10.5-14.5); WBC 11.3 thou/uL (4.0-11.0)
[2019-03-26 13:16] LABS: ABSOLUTE BASOPHILS 0.2 thou/uL (0.0-0.2); ABSOLUTE EOSINOPHILS 0.8 thou/uL (0.0-0.7); ABSOLUTE LYMPHOCYTES 0.6 thou/uL (0.8-5.3); ABSOLUTE MONOCYTES 0.2 thou/uL (0.0-1.2); ABSOLUTE NEUTROPHILS 9.5 thou/uL (1.6-8.1); METAMYELOCYTES 1 %
[2019-03-26 13:18] LABS: ANISOCYTOSIS Occasional; PLATELET ESTIMATE ADEQUATE
[2019-03-26 13:19] LABS: LARGE PLATELETS OCCASIONAL
[2019-03-26 13:20] LABS: BURR CELLS Occasional
[2019-03-26 14:40] LABS: CREATININE 4.6 mg/dL (0.6-1.3); POTASSIUM 3.7 mmol/L (3.5-5.1)
--- NOTE | 2019-03-26 16:27 | NUR ---
ASSUMED CARE OF PT APPROX 0730. REASSESSMENT COMPLETED CHARTED. MEDICATIONS GIVEN CHARTED. SAFTEY PRECAUTIONS IN PLACE, HOURLY ROUNDING. FAMILY AT BEDSIDE THIS MORNING AND AFTERNOON. PT UP TO BESIDE CHAIR THIS AFTERNOON.
--- NOTE | 2019-03-26 18:21 | NUR ---
PLAN OF CARE DISCUSSED WITH PT AND FAMILY. MEDICATIONS AND LABS DISCUSSED WITH PT AND FAMILY. VERBALIZED UNDERSTANDING. SAFTEY PRECAUTIONS IN PLACE.
[2019-03-27 04:00] VITALS: BP 139/54
--- NOTE | 2019-03-27 05:26 | NUR ---
ASSUMED PT CARE AT APPROX 1930. PT IS AWAKE AND ORIENTED X4-FORGETFUL. VSS ON 2L OF O2/NC. ASSESSMENT DONE AND CHARTED. PT IS ABLE TO SLEEP MOST OF THE NIGHT. CAREER PLACEMENT SPECIALIST IN PLACE TRACING SR. PT DENIES PAIN OF THIS TIME. HIGH FALL PRECAUTIONS IN PLACE. CALL LIGHT WITHIN REACH. HOURLY ROUNDING DONE FOR PT SAFETY.
[2019-03-27 06:30] LABS: CALCIUM 8.4 mg/dL (8.5-10.1); CREATININE 4.3 mg/dL (0.6-1.3); POTASSIUM 4.3 mmol/L (3.5-5.1)
[2019-03-27 07:48] VITALS: BP 178/67
[2019-03-27 13:50] VITALS: BP 115/42
[2019-03-27 15:35] LABS: HEMATOCRIT 29.1 % (37.0-47.0); MCH 31.1 pg (26.0-34.0); MCHC 34.5 g/dL (28.0-37.0); MCV 90.2 fL (80.0-100.0); MPV 8.8 fl. (7.2-11.1); RBC 3.23 mil/uL (4.20-5.00); RDW-CV 12.9 % (10.5-14.5); WBC 10.7 thou/uL (4.0-11.0)
[2019-03-27 16:47] VITALS: BP 172/66
--- NOTE | 2019-03-27 18:18 | NUR ---
patinet resting in bed. vss. patinet has had a somewhat improved appetite today. 3 bowel movements today. active bowel sounds. hourly rounding completed for patient safety. possible dc with home health tomorrow
[2019-03-27 20:00] VITALS: BP 140/68
[2019-03-28] VITALS: BP 164/71
[2019-03-28 04:00] VITALS: BP 153/51
--- NOTE | 2019-03-28 04:40 | NUR ---
ASSUMED PT CARE AT APPROX 1930. PT IS AWAKE AND ORIENTED X3-FORGETFUL AT TIMES. VSS ON ROOM AIR. LOGISTICS OFFICER IN PLACE TRACING SR. ASSESSMENT DONE AND CHARTED. PT DENIES PAIN OF THIS TIME, IS ABLE TO SLEEP MOST OF THE NIGHT. CALL LIGHT WITHIN REACH. POSITION CHANGES DONE. HIGH FALL PRECAUTIONS IN PLACE. HOURLY ROUNDING DONE FOR PT SAFETY.
[2019-03-28 05:13] LABS: CALCIUM 8.4 mg/dL (8.5-10.1); CREATININE 3.9 mg/dL (0.6-1.3); POTASSIUM 4.1 mmol/L (3.5-5.1)
[2019-03-28 07:42] VITALS: BP 166/58
[2019-03-28 10:11] LABS: GLOMERULR BASEM MEMBRN AB 2 units (0-20)
--- NOTE | 2019-03-28 11:23 | NUR ---
Long discussion had with Pt and family. Plan is home with HH at mo. CM discussed out of the hospital DNR with Pt, Pt stated that she does not want to be an outside of the hospital DNR, family heard Pt and are in agreement. CM provided Pt with HH list, family to review and let CM know which agency. CM faxed walker order to [facility], therapy can dispense walker at dc, order on the front of the chart. Dtr plans on staying with Pt until the , can stay longer if needed. Private duty list provided. Following.
[2019-03-28 12:00] VITALS: BP 155/60
[2019-03-28 14:08] VITALS: BP 155/60
[2019-03-28 14:10] VITALS: BP 155/60
[2019-03-28] MEDS ORDERED: NORVASC 2.5 MG2.5 M1 PO (14:43)
[2019-03-28] MEDS ORDERED: CALCITRIOL0.5 MCG PO (14:50)
[2019-03-28] MEDS ORDERED: CALCIUM CARBON500 MG PO (14:51)
[2019-03-28] MEDS ORDERED: MIRALAX119 GM PO (14:52)
--- NOTE | 2019-03-28 15:05 | EKG ---
[place] [address] ELECTROCARDIOGRAM REPORT Name: ADOLPH RAZA Room: [address] ADM IN M.R.#: [id number] Admission: 03/22/19 Attend Phys: Jason Suazo Discharge: Date of : 33 Report #: [id number] THIS REPORT FOR: //name// [facility] Test Date: 2019-03-25 Test Time: 15:14:37 Pat Name: ADOLPH RAZA Department: Room: [address] Gender: F Combination Operator: HELEN : 1935 Requested By: Jenelle Sotelo Order Number: [id number] Reading MD: Tl Sun Measurements Intervals [place] Rate: 139 P: ND: QRS: 96 QRSD: 85 T: 184 QT: 265 QTc: 403 Interpretive Statements Atrial fibrillation with rapid V-rate consider inferior infarction Right axis deviation Probable anteroseptal infarct, old Repolarization abnormality, prob rate related Compared to ECG 03/22/2019 09:14:35 Right-axis deviation now present Myocardial infarct finding now present Sinus rhythm no longer present Prolonged QT interval no longer present Electronically Signed On 03-28-2019 15:04:47 CARPENTER RAILCAR by Tl Sun [email or web address] <ELECTRONICALLY SIGNED> By: Tl Sun MD, FAC 03/28/19 1504 1514 1514 Tl Sun MD, [facility] /EPI
--- NOTE | 2019-03-28 15:06 | EKG ---
[place] [address] ELECTROCARDIOGRAM REPORT Name: ADOLPH RAZA Room: [address] ADM IN .R.#: [id number] Admission: 03/22/19 Attend Phys: Jason Suazo Discharge: Date of : 33 Report #: [id number] THIS REPORT FOR: //name// [facility] Test Date: 2019-03-25 Test Time: 16:00:56 Pat Name: ADOLPH RAZA Department: Room: [facility] Gender: F Hand I Blocker: LIZZIE : 1935 Requested By: Jenelle Sotelo Order Number: [id number] Reading MD: Tl Sun Measurements Intervals [place] Rate: 124 P: ID: QRS: 87 QRSD: 90 T: -72 QT: 315 QTc: 453 Interpretive Statements Atrial flutter with predominant 2:1 AV block Probable anterior infarct, age indeterminate consider inferior infarction Electronically Signed On 03-28-2019 15:06:19 POWERHOUSE ELECTRICIAN by Tl Sun [email or web address] <ELECTRONICALLY SIGNED> By: Tl Sun MD, [facility] 03/28/19 1506 1600 1600 Tl Sun MD, FACC /EPI
--- NOTE | 2019-03-28 18:58 | NUR ---
ORDER RECEIVE TO DISCHARGE PATIENT HOME WITH HOME HEALTH SERV[facility]. MED REC, MEDICAITON EDUCATION, STROKE EDUCATION, AND NEED FOR FOLLOQW UP APPOINTMENT WITH RENAL IN 3 WEEEKS WITH LABS 1 WEEK PRIOR COVERED AND STATED UNDERSTOOD BY CHRIS. IV AND TELEMETRY PACK REMOVBED. PATIENT TAKEN VIA WHEELCHAIR WITH FAMILY PORESENT TO AWAITING CAR. DC TIME OF 15:45. HOURLY ROUNDING COMPETED FOR PATIENT SAFETY.
== END 2019-03-28 15:48 | disposition home health service (06) | DRG 280 ==
LOC: M.ERS 09:01 → M.TBA-ER 10:46 → M.2W 10:46
PROVIDERS: Emergency Medicine Emergency Medical Services; Internal Medicine; Internal Medicine Nephrology; ADMIT Internal Medicine
DX: I21.A1 Myocardial infarction type 2 (principal); N17.0 Acute kidney failure with tubular necrosis; E87.3 Alkalosis; I47.2 Ventricular tachycardia; E86.9 Volume depletion, unspecified; E86.0 Dehydration; E83.42 Hypomagnesemia; N13.9 Obstructive and reflux uropathy, unspecified; E83.51 Hypocalcemia; F03.90 Unspecified dementia, unspecified severity, without behavioral disturbance, psychotic disturbance, mood disturbance, and anxiety; D64.9 Anemia, unspecified; I08.3 Combined rheumatic disorders of mitral, aortic and tricuspid valves; N18.9 Chronic kidney disease, unspecified; I12.9 Hypertensive chronic kidney disease with stage 1 through stage 4 chronic kidney disease, or unspecified chronic kidney disease; E87.6 Hypokalemia; I48.91 Unspecified atrial fibrillation; K59.00 Constipation, unspecified; R31.29 Other microscopic hematuria; F41.9 Anxiety disorder, unspecified; E78.5 Hyperlipidemia, unspecified; M81.0 Age-related osteoporosis without current pathological fracture; Z85.038 Personal history of other malignant neoplasm of large intestine; Z90.49 Acquired absence of other specified parts of digestive tract; Z88.7 Allergy status to serum and vaccine; Z91.041 Radiographic dye allergy status; Z86.73 Personal history of transient ischemic attack (TIA), and cerebral infarction without residual deficits; Z79.899 Other long term (current) drug therapy; Z79.82 Long term (current) use of aspirin; Z82.3 Family history of stroke; Z98.49 Cataract extraction status, unspecified eye

== ENCOUNTER → 2019-04-21 | Outpatient (CLI) | payer MEDICARE, BC ==
[~2019-04-21] MED LIST changes: +CALCITRIOL0.5 MCG PO; +CALCIUM CARBON500 MG PO; +KEFLEX500 M1 PO; +MIRALAX119 GM PO; +NORVASC 2.5 MG2.5 M1 PO
== END ==
LOC: M.CT 12:33
DX: R90.82 White matter disease, unspecified (principal); G93.89 Other specified disorders of brain; I65.29 Occlusion and stenosis of unspecified carotid artery

== ENCOUNTER 2019-04-22 12:33 | Emergency (ER) | payer MEDICARE, BC ==
[~2019-04-22] VITALS: Ht 144.8 cm; Wt 50.4 kg
--- NOTE | ~2019-04-22 | EKG ---
[place] [address] ELECTROCARDIOGRAM REPORT Name: FLOYDJULIANAADOLPH Room: [facility]#: [id number] Admission: 04/22/19 Attend Phys: Discharge: Date of : 33 Date of Service: 04/22/19 1346 Report #: [id number] THIS REPORT FOR: cc: Kathy Ramirez Linda J. DO Epiphany, Epiphany MD ~ THIS REPORT FOR: //name// [facility] ED Test Date: 2019-04-22 Test Time: 13:46:32 Pat Name: ADOLPH RAZA Department: Room: Gender: F Varnish Melter: MARTIN : 1935 Requested By: Raeann Stevenson Order Number: [id number] MD: Measurements Intervals [place] Rate: 61 P: 43 KS: 188 QRS: 84 QRSD: 91 T: -34 QT: 466 QTc: 470 Interpretive Statements Sinus rhythm Borderline right axis deviation Nonspecific repol abnormality, diffuse leads Compared to ECG 03/25/2019 16:00:56 Early repolarization now present Atrial flutter no longer present 2:1 AV block no longer present Myocardial infarct finding no longer present [email or web address] By: 1346 Epiphany EpiphanyMD /TIFF
[~2019-04-22 12:33] MED LIST changes: -KEFLEX500 M1 PO
[2019-04-22 13:21] LABS: ABSOLUTE BASOPHILS 0.1 thou/uL (0.0-0.2); ABSOLUTE EOSINOPHILS 0.3 thou/uL (0.0-0.7); ABSOLUTE LYMPHOCYTES 2.3 thou/uL (0.8-5.3); ABSOLUTE MONOCYTES 0.7 thou/uL (0.0-1.2); ABSOLUTE NEUTROPHILS 6.3 thou/uL (1.6-8.1); BASOPHILS 1.4 %; HEMATOCRIT 28.1 % (37.0-47.0); HEMOGLOBIN 9.5 gm/dL (12.0-15.0); LYMPHOCYTES 23.2 %; MCH 30.6 pg (26.0-34.0); MCV 90.1 fL (80.0-100.0); MONOCYTES 7.5 %; MPV 8.5 fl. (7.2-11.1); NUCLEATED RBCS 0 /100WBC; PLATELET COUNT* 345 thou/uL (150-400); POLYS 64.9 %; RBC 3.12 mil/uL (4.20-5.00); RDW-CV 13.1 % (10.5-14.5); WBC 9.7 thou/uL (4.0-11.0)
[2019-04-22 13:31] LABS: CALCIUM 9.1 mg/dL (8.5-10.1); CREATININE 1.7 mg/dL (0.6-1.3); POTASSIUM 3.2 mmol/L (3.5-5.1)
[2019-04-22 13:36] LABS: ALBUMIN 3.4 g/dL (3.4-5.0); TOTAL BILIRUBIN 0.7 mg/dL (<0.1-1.0); TOTAL PROTEIN 7.5 g/dL (6.4-8.2)
[2019-04-22 14:11] LABS: URINE BILIRUBIN NEGATIVE (Negative); URINE BLOOD NEGATIVE (Negative); URINE CLARITY CLEAR; URINE COLOR YELLOW; URINE GLUCOSE-RANDOM NEGATIVE (Negative); URINE KETONES TRACE (Negative); URINE NITRITE-REFLEX NEGATIVE (Negative); URINE PROTEIN 2+ (Negative); URINE SPECIFIC GRAVITY 1.015 (1.005-1.030)
[2019-04-22 14:12] LABS: URINE LEUKOCYTES-REFLEX 2+ (Negative)
[2019-04-22 14:18] LABS: AMP/METHAMP Negative (Negative); BARBITURATES Negative (Negative); BENZODIAZEPINES Negative (Negative); COCAINE Negative (Negative); METHADONE Negative (Negative); OPIATES Negative (Negative); PCP Negative (Negative); THC Negative (Negative)
[2019-04-22 14:21] LABS: BACTERIA-REFLEX 1-9 Few /HPF (None Seen); CASTS None Seen /LPF (None Seen); CRYSTALS None Seen /LPF (None Seen); MUCUS None Seen strn/LPF (None Seen); SQUAMOUS 4-10 Moderate /LPF (0-3); URINE RBC 3-10 Few /HPF (0-2)
[2019-04-22] MEDS ORDERED: KEFLEX500 M1 PO (14:52)
[2019-04-22 15:00] VITALS: BP 151/48
== END 2019-04-22 15:01 | disposition home or self-care (01) ==
LOC: M.ERS 12:33
PROVIDERS: Nurse Practitioner Family
DX: N39.0 Urinary tract infection, site not specified (principal); I10 Essential (primary) hypertension; E78.5 Hyperlipidemia, unspecified; Z91.041 Radiographic dye allergy status; Z88.7 Allergy status to serum and vaccine; Z88.8 Allergy status to other drugs, medicaments and biological substances

== ENCOUNTER 2019-04-25 07:57 | Inpatient (IN) | payer MEDICARE, BC ==
[~2019-04-25] VITALS: Ht 139.7 cm; Wt 51.2 kg
--- NOTE | ~2019-04-25 | CON ---
[address] [address] CONSULTATION Name: ADOLPH RAZA Jason Room: [address] IN M.R.#: [id number] Admission: 04/25/19 Attend Phys: Dejuan Parish MD Discharge: Date of : 33 Report #: [id number] THIS REPORT FOR: //name// cc: Kathy Ramirez Linda J. DO ~ THIS REPORT FOR: //name// CC: Dejuan Ramirez DO DICTATED BY: Lenore Puente [facility] DATE OF SERVICE: 04/27/2019 PRIMARY CARE PHYSICIAN: Kathy Ramirez DO Please note at the time of this dictation, the patient was seen and physically examined by myself. REASON FOR CONSULTATION: Anemia and difficulty swallowing. HISTORY OF PRESENT ILLNESS: This is an 83-year-old female who presents to the Emergency Room with some chest tightness. She had some increased shortness of breath and she was feeling very weak. The patient has also been noted that she has not had much of an appetite over the past month. She has been noticing for some time that she has had difficulty swallowing, sometimes pills or things may get stuck and then she will regurgitate them later, and she is wondering if her swallowing is adequate or not. She does notice that she does cough some after swallowing. The patient has never had an EGD done. She denies any acid reflux. She does not take any medication for that and denies any nausea or vomiting at this time. The patient is not having any abdominal discomfort. She does state she does have some issues with constipation and that is why she was here earlier in the month and also her kidneys did not work very well. She is now going on a regular basis, soft and formed. She is on a better bowel regimen with some Senokot daily at home. She did have a colonoscopy back in [address] Pettit, but noted to have a fair prep. She had a polyp removed in the sigmoid and internal hemorrhoids, otherwise negative for surveillance given that she had a history of colon cancer several years ago. ALLERGIES: CONTRAST DYE AND SHINGRIX VACCINE. MEDICATIONS FROM HOME: Include Keflex, MiraLax, calcium carbonate, calcitriol, Norvasc, Zyrtec, multivitamin, Senokot, atorvastatin, and metoprolol. PAST MEDICAL HISTORY: Hypertension, hyperlipidemia, osteoporosis, colon cancer with colon resection in 2013, mitral and tricuspid regurgitation, and also aortic stenosis. PAST SURGICAL HISTORY: Colon resection and cataract removal. FAMILY HISTORY: Negative for any GI or female cancers. SOCIAL HISTORY: Lives independently. Denies any alcohol, tobacco, or illegal drug use. REVIEW OF SYSTEMS: A 12-point review of systems is essentially negative except what is mentioned in the HPI. PHYSICAL EXAMINATION: VITAL SIGNS: Temperature 36.6, pulse 65, respirations 17, and blood pressure 150/71. HEART: Irregular rate and rhythm with murmur noted. LUNGS: Diminished, but clear. ABDOMEN: Soft. Positive bowel sounds in all 4 quadrants with no masses or tenderness noted. LABORATORY DATA: Hemoglobin on admission was 10.6 and now is 8.6, white count is 16.5, and platelets 350. GFR is 29. Her BNP was 11,846. Chest x-ray showed some left upper lobe and left lower lobe pneumonitis and cardiomegaly. IMPRESSION: 1. Anemia. 2. Dysphagia. 3. Loss of appetite. 4. Pneumonia. 5. History of constipation. 6. Chronic kidney disease. 7. Congestive heart failure. 8. Personal history of colon cancer back in 2013. PLAN: 1. Video swallow to ensure no aspiration. 2. Labs; ferritin, iron studies, B12, and ESR. 3. Once her pulmonary status improves, we will plan on doing an EGD. 4. We will advance her diet to full liquids. 5. Further recommendations to be made once Dr. Chavez sees the patient later today. Thank you for allowing us to participate in this patient's care. Please do not hesitate to call with any questions in regard to this consult. By: 1103 1255Farabimael Chavez MD /nt
[~2019-04-25 07:57] MED LIST changes: +KEFLEX500 M1 PO
[2019-04-25 08:49] VITALS: BP 134/78
[2019-04-25 09:20] LABS: ABSOLUTE BASOPHILS 0.1 thou/uL (0.0-0.2); ABSOLUTE EOSINOPHILS 0.2 thou/uL (0.0-0.7); ABSOLUTE LYMPHOCYTES 2.5 thou/uL (0.8-5.3); ABSOLUTE MONOCYTES 0.6 thou/uL (0.0-1.2); ABSOLUTE NEUTROPHILS 11.4 thou/uL (1.6-8.1); BASOPHILS 0.6 %; EOSINOPHILS 1.6 %; HEMATOCRIT 32.3 % (37.0-47.0); HEMOGLOBIN 10.6 gm/dL (12.0-15.0); LYMPHOCYTES 16.8 %; MCH 30.1 pg (26.0-34.0); MCHC 32.8 g/dL (28.0-37.0); MCV 91.8 fL (80.0-100.0); MONOCYTES 4.2 %; MPV 8.5 fl. (7.2-11.1); NUCLEATED RBCS 0 /100WBC; POLYS 76.8 %; RBC 3.52 mil/uL (4.20-5.00); RDW-CV 13.1 % (10.5-14.5); WBC 14.8 thou/uL (4.0-11.0)
[2019-04-25 09:23] LABS: PLATELET COUNT* 475 thou/uL (150-400)
[2019-04-25 09:29] LABS: CALCIUM 9.1 mg/dL (8.5-10.1); CREATININE 1.3 mg/dL (0.6-1.3); POTASSIUM 3.5 mmol/L (3.5-5.1)
[2019-04-25 09:36] LABS: APTT 25.2 Seconds (25.0-31.3); INR 1.1; PROTIME 11.6 Seconds (9.20-11.50)
[2019-04-25 09:40] LABS: ALBUMIN 3.8 g/dL (3.4-5.0); TOTAL BILIRUBIN 0.8 mg/dL (<0.1-1.0); TOTAL PROTEIN 8.2 g/dL (6.4-8.2)
--- NOTE | 2019-04-25 11:15 | NUR ---
ER ADMIT TO 213 TELEPHONE REPORT GIVEN PROIR TO ARRIVAL PATIENT ARRIVED VIA CART AND ASSISTED TO BED PATIENT ORIENTED TO AND CALL LIGHT PATIENT DENIUES PAIN FAMILY AT BEDSIDE
[2019-04-25 11:22] VITALS: BP 118/34
[2019-04-25 11:45] VITALS: BP 28/46
[2019-04-25] MEDS ORDERED: KEFLEX500 M1 PO (12:49)
[2019-04-25 15:39] VITALS: BP 90/43
[2019-04-25 17:34] LABS: URINE BILIRUBIN NEGATIVE (Negative); URINE BLOOD NEGATIVE (Negative); URINE CLARITY CLEAR; URINE COLOR YELLOW; URINE GLUCOSE-RANDOM NEGATIVE (Negative); URINE KETONES NEGATIVE (Negative); URINE LEUKOCYTES-REFLEX NEGATIVE (Negative); URINE NITRITE-REFLEX NEGATIVE (Negative); URINE PROTEIN 2+ (Negative); URINE UROBILINOGEN 0.2 E.U./dl (0.2-1.0)
[2019-04-25 17:54] LABS: MUCUS None Seen strn/LPF (None Seen); SQUAMOUS 4-10 Moderate /LPF (0-3)
[2019-04-25 17:55] LABS: CRYSTALS None Seen /LPF (None Seen); HYALINE CASTS 0-3 Few /LPF (None Seen); URINE RBC None Seen /HPF (0-2); URINE WBC-REFLEX 0-5 Rare /HPF (0-5)
[2019-04-25 20:00] VITALS: BP 112/75; BP 126/41
[2019-04-25 23:08] LABS: GLYCOHEMOGLOBIN (HGB A1C) 5.8 % (4.8-5.6)
[2019-04-25 23:41] VITALS: BP 105/45
[2019-04-26 04:19] VITALS: BP 106/45
--- NOTE | 2019-04-26 05:34 | NUR ---
PT HAD EPISODES OF IMPULSIVE BEHAVIOR, ATTEMPTING TO GET UP BY HERSELF. EDUCATED PT ON THE IMPORTANCE OF HAVING STAFF WITH HER WHEN SHE GETS UP TO KEEP HER FROM FALLING. PT HAD INCREASED ANXITY, RECIEVED ORDERS FROM PHYSICIAN FOR PRN MEDICATION. NO OTHER ISSUES NOTED BY PT, CURRENTLY ASLEEP WITH BED ALARM ON AND CALL LIGHT WITHIN REACH.
[2019-04-26 07:30] LABS: HEMATOCRIT 22.7 % (37.0-47.0); MCH 30.9 pg (26.0-34.0); MCHC 34.6 g/dL (28.0-37.0); MCV 89.2 fL (80.0-100.0); MPV 8.2 fl. (7.2-11.1); NUCLEATED RBCS 0 /100WBC; RBC 2.54 mil/uL (4.20-5.00); RDW-CV 13.1 % (10.5-14.5); WBC 13.8 thou/uL (4.0-11.0)
[2019-04-26 07:36] LABS: HEMOGLOBIN 7.8 gm/dL (12.0-15.0); PLATELET COUNT* 290 thou/uL (150-400)
[2019-04-26 07:48] LABS: CALCIUM 8.3 mg/dL (8.5-10.1); CREATININE 1.5 mg/dL (0.6-1.3); POTASSIUM 3.6 mmol/L (3.5-5.1)
[2019-04-26 08:14] LABS: ABSOLUTE LYMPHOCYTES 1.5 thou/uL (0.8-5.3); ABSOLUTE MONOCYTES 0.3 thou/uL (0.0-1.2); PLATELET ESTIMATE ADEQUATE
[2019-04-26 08:15] VITALS: BP 149/61
--- NOTE | 2019-04-26 10:53 | CON ---
[address] [address] CONSULTATION Name: LUZ MARINAADOLPH Room: [address] IN M.R.#: [id number] Admission: 04/25/19 Attend Phys: Dejuan Parish MD Discharge: Date of : 33 Report #: [id number] THIS REPORT FOR: //name// cc: Kathy Ramirez Linda J. DO THIS REPORT FOR: //name// CC: Dejuan Ramirez DO DATE OF SERVICE: 04/25/2019 CARDIOLOGY CONSULTATION HISTORY OF PRESENT ILLNESS: The patient is an 83-year-old single white female who came to the Emergency Room today complaining of chest pain. The patient has an extensive past medical history. She has a history of chronic kidney disease, but has never been dialyzed. She previously had an elevated troponin, felt to be related to myocardial infarction, although she has never had a cardiac catheterization because of her chronic kidney disease. Previous echocardiogram showed severe aortic stenosis. The patient is not very active at this time. She has had multiple hospitalizations here at [facility]. She was actually just admitted here a month ago with chronic kidney disease, elevated troponin. Recently, she has had increasing shortness of breath and cough. She has had a history of edema in the past. Her family brought her to the Emergency Room. She was admitted for further evaluation and treatment. PAST MEDICAL HISTORY: Significant for cataract extraction, colon surgery for cancer, rotator cuff surgery. She has a history of hypertension and hyperlipidemia. MEDICATIONS: Consist of amlodipine, aspirin, Lipitor, and metoprolol. ALLERGIES: SHE HAS ALLERGY TO CONTRAST. FAMILY HISTORY: Her brother had a heart attack. SOCIAL HISTORY: She is , lives in [place], [place]. No smoking or alcohol abuse. REVIEW OF SYSTEMS: She apparently has had a previous stroke. No history of asthma, peptic ulcer disease or liver disease. She has chronic kidney disease, history of colon cancer. No chronic skin condition. PHYSICAL EXAMINATION: GENERAL: Revealed an elderly frail appearing female, lying in bed. She appeared in no acute distress. VITAL SIGNS: She had a blood pressure of 120/60, pulse 60. She is afebrile. HEENT: She was anicteric. Conjunctivae are pink. Mucous members appear dry. NECK: Veins do not appear distended. CHEST: Revealed coarse breath sounds bilaterally. CARDIAC: Regular rate and rhythm, grade 4 systolic ejection murmur along the left sternal border. ABDOMEN: Soft. EXTREMITIES: Had no pitting edema. SKIN: Cool and dry. NEUROLOGIC: Nonfocal. DIAGNOSTIC IMAGING DATA: Her ECG showed a sinus rhythm, nonspecific ST and T-wave changes were noted. Her workup in the Emergency Room today, she had a portable chest x-ray that showed cardiomegaly, mild vascular congestion, possible pneumonitis. Previous CT scan of the head performed last week showed no acute abnormality. LABORATORY WORK: Sodium 142, potassium 3.5, BUN of 15, creatinine is now 1.3. In the past, it has been as high as 9.0. Her glucose is 242. Liver function studies were normal. Troponin is 0.06. BNP is 4866. TSH is 0.8. Her white blood cell count 14.8, hemoglobin 10.6; last month, it was 9.7. The patient had an echocardiogram done last August that showed left ventricular hypertrophy, ejection fraction greater than 70%, left atrial enlargement, severe aortic stenosis with moderate aortic regurgitation. The peak gradient across the aortic valve leaflets was 62 mmHg. There was no evidence of a shunt. IMPRESSION AND RECOMMENDATIONS: 1. Shortness of breath, possible pneumonia. The patient does have severe aortic stenosis. 2. Aortic stenosis. The patient is not a candidate for valve replacement. 3. Hypertension. The patient is on a calcium ronak and beta ronak. 4. Chronic kidney disease. Renal function has improved. 5. History of colon cancer. 6. Previous stroke. 7. Hard of hearing. <ELECTRONICALLY SIGNED> By: Tl Sun MD, FACC 04/26/19 1053 1827 0030Tl Sun MD, FACC /nt
[2019-04-26 11:11] LABS: BE -2.8 mmol/L (-2 to +3); PO2 65.4 mmHg (75.0-100.0)
[2019-04-26 11:13] LABS: PCO2 54.9 mmHg (35.0-45.0); pH 7.269 (7.340-7.450)
[2019-04-26 12:00] VITALS: BP 128/53
--- NOTE | 2019-04-26 15:18 | NUR ---
CM ASSESSMENT: PT KNOWN TO STAFF FROM PREVIOUS VISIT. PT HAS HH WITH [facility] AND 24 [facility]. PT ON BIPAP. PLAN IS TO RETURN HOME WITH HH. CM WILL CONTINUE TO FOLLOW
[2019-04-26 16:00] VITALS: BP 151/43
--- NOTE | 2019-04-26 19:16 | NUR ---
ASSUSMED CARE OF PT APPROX 0730. PT ANXIOUS THIS AM ABOUT HER BREATHING, MEDICATION GIVEN. DR IN THIS AM AND SPOKE WITH PT ABOUT PLAN OF CARE. PER FAMILY PT HAD INCREASED TROUBLE BREATHING AFTER THE DR LEFT, FAMILY REPORTED THEY BELIEVED INCREASED WORK OF BREATHING WAS DUE TO ANXIETY. PTS O2 SAT REPORTED TO NURSE BY RADIO RIGGER TO BE 80% ON 3L NC. RAPID RESPONSE ACTIVATED ON PT AND ORDERS RECIEVED. PT PLACED ON BIPAP BY RESPIRATORY. RESPIRATORY STATUS IMPROVED WITH BIPAP. PT TOLERATED WELL, PT WAS ASLEEP FOR MOST OF THIS SHIFT. AFTER PT WOKE UP SHE WAS PLACED ON 3L NC, TOLERATED WELL. SAFTEY PRECAUTIONS IN PLACE. HOURLY ROUNDED. FAMILY AT BEDSIDE THE WHOLE SHIFT.
[2019-04-26 20:00] VITALS: BP 105/40
[2019-04-27 00:20] VITALS: BP 99/40
[2019-04-27 04:46] VITALS: BP 150/71
--- NOTE | 2019-04-27 05:32 | NUR ---
PT HAS SLEPT MAJORITY OF SHIFT. SHE IS HAVING MORE CONFUSION THIS SHIFT COMPARED TO PRIOR HS SHIFT. BOYKIN HAS RED URINE NOTED. MAINTAINING O2 SATS ON 2L NC. PT IS CURRENTLY ASLEEP WITH BED ALARM ON AND CALL LIGHT WITHIN.
[2019-04-27 06:43] LABS: ABSOLUTE LYMPHOCYTES 1.6 thou/uL (0.8-5.3); ABSOLUTE MONOCYTES 1.1 thou/uL (0.0-1.2); ABSOLUTE NEUTROPHILS 13.7 thou/uL (1.6-8.1); BASOPHILS 0.3 %; EOSINOPHILS 0.2 %; HEMATOCRIT 25.5 % (37.0-47.0); HEMOGLOBIN 8.6 gm/dL (12.0-15.0); LYMPHOCYTES 9.7 %; MCH 30.3 pg (26.0-34.0); MCHC 33.5 g/dL (28.0-37.0); MCV 90.3 fL (80.0-100.0); MONOCYTES 6.9 %; MPV 8.4 fl. (7.2-11.1); NUCLEATED RBCS 0 /100WBC; PLATELET COUNT* 350 thou/uL (150-400); POLYS 82.9 %; RBC 2.83 mil/uL (4.20-5.00); RDW-CV 13.3 % (10.5-14.5); WBC 16.5 thou/uL (4.0-11.0)
[2019-04-27 07:18] LABS: ALBUMIN 3.2 g/dL (3.4-5.0); CALCIUM 8.1 mg/dL (8.5-10.1); CREATININE 1.7 mg/dL (0.6-1.3); POTASSIUM 3.3 mmol/L (3.5-5.1); TOTAL BILIRUBIN 0.8 mg/dL (<0.1-1.0); TOTAL PROTEIN 6.7 g/dL (6.4-8.2)
[2019-04-27 08:00] VITALS: BP 117/42
[2019-04-27 11:37] LABS: % SATURATION 26 % (20-39); IRON 65 ug/dL (50-175)
[2019-04-27 12:00] VITALS: BP 118/44
[2019-04-27 16:00] VITALS: BP 128/50
--- NOTE | 2019-04-27 19:55 | NUR ---
PT A&O x3, FORGETFUL. FAMILY AT THE BEDSIDE THE WHOLE DAY. BOYKIN'S CATH DC'D. PT VOIDED POST BOYKIN REMOVAL. VSS, O2 SUPPORT NC AT 2L/MIN. OUT OF BED, STB ASSIST, USES A WALKER. DIET ADVANCED TO FULL LIQUID, TOLERATING WELL. PASSED XR SWALLOW TEST. BM x2 THIS SHIFT, SOFT IN CONSISTENCY. POTASSIUM REPLACED PER PROTOCOL.
[2019-04-27 20:00] VITALS: BP 136/56
[2019-04-28 00:37] VITALS: BP 159/61
[2019-04-28 04:00] VITALS: BP 167/62
[2019-04-28 05:20] LABS: ABSOLUTE BASOPHILS 0.1 thou/uL (0.0-0.2); ABSOLUTE EOSINOPHILS 0.1 thou/uL (0.0-0.7); ABSOLUTE LYMPHOCYTES 1.4 thou/uL (0.8-5.3); ABSOLUTE MONOCYTES 1.3 thou/uL (0.0-1.2); ABSOLUTE NEUTROPHILS 11.1 thou/uL (1.6-8.1); BASOPHILS 0.9 %; HEMOGLOBIN 9.3 gm/dL (12.0-15.0); LYMPHOCYTES 9.9 %; MCH 30.2 pg (26.0-34.0); MCHC 33.3 g/dL (28.0-37.0); MCV 90.7 fL (80.0-100.0); MONOCYTES 9.4 %; MPV 8.3 fl. (7.2-11.1); NUCLEATED RBCS 0 /100WBC; PLATELET COUNT* 357 thou/uL (150-400); POLYS 78.8 %; RBC 3.09 mil/uL (4.20-5.00); RDW-CV 13.9 % (10.5-14.5); WBC 14.1 thou/uL (4.0-11.0)
[2019-04-28 05:43] LABS: CREATININE 1.6 mg/dL (0.6-1.3); POTASSIUM 3.5 mmol/L (3.5-5.1)
[2019-04-28 05:47] LABS: CALCIUM 8.7 mg/dL (8.5-10.1)
[2019-04-28 08:00] VITALS: BP 174/59
--- NOTE | 2019-04-28 08:19 | NUR ---
PT A+O X 4. FROGETFUL TO USE CALL LIGHT WHEN GETTING UP @ TIMES. BED ALARM ON. PT UP FREQUENTLY THROUGHOUT SHIFT TO URINATE AND THEN HAD SOME LOOS STOOLS THIS AM. NO PAIN REPORTED LA OBSEERVED. CALL LIGHT IN REACH. HOURLY ROUNDING FOR SAFETY.
[2019-04-28 12:56] VITALS: BP 109/44
[2019-04-28 15:59] VITALS: BP 146/57
--- NOTE | 2019-04-28 16:55 | NUR ---
RE: CHF Medication Teaching Saw pt today to discuss CHF medications. Things includes how/when to take, possible side effects etc. The patient indicates they have no questions at this time. Pharmacy is available for further needs/questions. Thank you.
--- NOTE | 2019-04-28 17:06 | NUR ---
I have reviewed the documentation by JAMESON ROQUE from 04/28/19 to 04/28/19 and I concur with it. SUMEET URIARTE
--- NOTE | 2019-04-28 17:56 | 2DMMODE ---
[place] [address] 2 D/M-MODE ECHOCARDIOGRAM Name: LUZ MARINAADOLPH Room: [address] IN [facility]#: [id number] Admission: 04/25/19 Attend Phys: Dejuan Parish, Discharge: Date of : 31 Date of Service: 04/28/19 1755 Report #: [id number] THIS REPORT FOR: cc: Kathy Ramirez Linda J. DO Biggs, F. Douglas MD [facility] ~ APPROVED REPORT Study performed: 04/27/2019 15:45:44 EXAM: Comprehensive 2D, Doppler, and color-flow Echocardiogram Patient Location: In-Patient Room #: [facility] Status: routine BSA: 1.40 HR: 71 bpm BP: 118/44 mmHg Rhythm: NSR Other Information Study Quality: Good Indications Congestive Heart Failure 2D Dimensions IVSd: 13.61 (7-11mm) LVOT Diam: 15.60 (18-24mm) LVDd: 34.19 mm PWd: 12.99 (7-11mm) Ascending Ao: 30.69 (22-36mm) LVDs: 20.94 (25-40mm) Aortic Root: 26.05 mm Volumes Left Atrial Volume (Systole) LA ESV Index: 53.10 mL/m2 Aortic Valve AoV Peak Marquise.: 3.85 m/s AO Peak Gr.: 59.29 mmHg LVOT Max P.46 mmHg AO Mean Gr.: 37.45 mmHg LVOT Mean P.91 mmHg LVOT Max V: 1.06 m/s AO V2 VTI: 100.72 cm LVOT Mean V: 0.62 m/s LUNA (VTI): 0.47 cm2 LVOT V1 VTI: 24.53 cm AI [place]: 2.75 m/s2 [place] [address] 2 D/M-MODE ECHOCARDIOGRAM Name: ADOLPH RAZA Room: [address] IN .R.#: [id number] Admission: 04/25/19 Attend Phys: Dejuan Parish, Discharge: Date of : 31 Date of Service: 04/28/19 1755 Report #: [id number] AI PHT: 353.68 ms Mitral Valve MV Mean Gr.: 5.24 mmHg E/A Ratio: 1.48 MV Decel. Time: 206.40 ms MV E Max Marquise.: 1.75 m/s MV PHT: 59.86 ms MVA (PHT): 3.68 cm2 TDI E/Lateral E': 29.17 E/Medial E': 35.00 Medial E' Marquise.: 0.05 m/s Lateral E' Marquise.: 0.06 m/s Pulmonary Valve PV Peak Marquise.: 0.82 m/s PV Peak Gr.: 2.68 mmHg Tricuspid Valve RAP Estimate: 5.00 mmHg TR Peak Gr.: 46.88 mmHg RVSP: 51.00 mmHg PA Pressure: 51.00 mmHg Left Ventricle The left ventricle is normal size. There is normal LV segmental wall motion. Mild concentric left ventricular hypertrophy. Left ventricular systolic function is normal. The left ventricular ejection fraction is within the normal range. LVEF is 65-70%. Grade II - pseudonormal filling dynamics. Right Ventricle The right ventricle is normal size. The right ventricular systolic function is normal. Atria Left atrium is severely dilated. The right atrium size is normal. Aortic Valve Severe aortic valve sclerosis. Moderate aortic regurgitation. Severe aortic stenosis. Mitral Valve Moderate mitral annular calcification. Moderate mitral regurgitation. Mild mitral stenosis[place] [address] 2 D/M-MODE ECHOCARDIOGRAM Name: ADOLPH RAZA Room: [address] IN [facility]#: [id number] Admission: 04/25/19 Attend Phys: Dejuan Parish, Discharge: Date of : 31 Date of Service: 04/28/19 1755 Report #: [id number] The tricuspid valve is normal in structure. Mild tricuspid regurgitation. Moderate pulmonary hypertension. Pulmonic Valve The pulmonary valve is normal in structure. Mild pulmonic regurgitation. Great Vessels The aortic root is normal in size. IVC is normal in size and collapses >50% with inspiration. Pericardium There is no pericardial effusion. <Conclusion> LVEF is 65-70%. Grade II - pseudonormal filling dynamics. The left ventricle is normal size. Mild concentric left ventricular hypertrophy. There is normal LV segmental wall motion. Left atrium is severely dilated. Severe aortic valve sclerosis. Moderate aortic regurgitation. Severe aortic stenosis. Moderate mitral annular calcification. Moderate mitral regurgitation. Mild mitral stenosis. Mild tricuspid regurgitation. Moderate pulmonary hypertension. Mild pulmonic regurgitation. <ELECTRONICALLY SIGNED> By: Pradip Delvalle MD, FACC 04/28/191754 54 54 Pradip Delvalle MD, FACC /INF
[2019-04-28 20:05] VITALS: BP 139/52
[2019-04-29] VITALS (8 sets, daily range): BP systolic 123–174; BP diastolic 42–55
--- NOTE | 2019-04-29 06:49 | NUR ---
PATIENT PARTIALLY PROGRESSING TOWARDS GOALS: PATIENT SLEEPING MOST OF SHIFT. DENIES PAIN AND DISCOMFORT. NPO AT THIS TIME. CALL LIGHT WITHIN REACH
--- NOTE | 2019-04-29 08:38 | NUR ---
ASSUMED CARE OF PT THIS AM AROUND 0715- CAMPAIGN MARKETING MANAGER IN PLACE ORDERED, TRACING SR- UPON ASSESSMENT PT NOTED TO BE RESTING IN BED- PT A&O X2-3 WITH NOTED CONFUSSION- CONTINENT OF B/B- SBA WITH TRANSFERS- LCTA, RESP EVEN AND UN-LABORED- VSS, O2 SAT 95% ON 2L VIA NC- ABD SOFT/ROUND/NON-TENDER, BS X4 QUADS- LAST BM REPORTED 04/28/19-PT CURRENTLY NPO FOR PLANNED EGD THIS SHIFT- IV NOTED TO RIGHT WRIST INTACT AND SL- BS MONITORED ORDERED- PT DENIES ANY C/O PAIN/DISCOMFORT AT THIS TIME- CALL LIGHT AND PERSONAL BELONGINGS WITH IN REACH- HOURLY ROUNDS IN PLACE R/T SAFETY/NEEDS- ALL NEEDS MET AT THIS TIME-WCTM
[2019-04-29 16:31] LABS: ABSOLUTE BASOPHILS 0.1 thou/uL (0.0-0.2); ABSOLUTE EOSINOPHILS 0.6 thou/uL (0.0-0.7); ABSOLUTE LYMPHOCYTES 2.1 thou/uL (0.8-5.3); ABSOLUTE MONOCYTES 0.8 thou/uL (0.0-1.2); ABSOLUTE NEUTROPHILS 10.6 thou/uL (1.6-8.1); BASOPHILS 0.7 %; EOSINOPHILS 4.1 %; HEMATOCRIT 30.4 % (37.0-47.0); HEMOGLOBIN 10.3 gm/dL (12.0-15.0); LYMPHOCYTES 14.8 %; MCH 30.7 pg (26.0-34.0); MCHC 33.7 g/dL (28.0-37.0); MCV 91.1 fL (80.0-100.0); MONOCYTES 5.5 %; MPV 8.5 fl. (7.2-11.1); NUCLEATED RBCS 0 /100WBC; PLATELET COUNT* 390 thou/uL (150-400); POLYS 74.9 %; RBC 3.34 mil/uL (4.20-5.00); RDW-CV 13.5 % (10.5-14.5); WBC 14.2 thou/uL (4.0-11.0)
[2019-04-29 16:43] LABS: ALBUMIN 3.3 g/dL (3.4-5.0); CALCIUM 8.8 mg/dL (8.5-10.1); CREATININE 1.3 mg/dL (0.6-1.3); POTASSIUM 3.1 mmol/L (3.5-5.1); TOTAL BILIRUBIN 1.3 mg/dL (<0.1-1.0); TOTAL PROTEIN 7.4 g/dL (6.4-8.2)
--- NOTE | 2019-04-30 03:26 | NUR ---
ASSUMED CARE OF PT AT 1900. PT IS ALERT AND ORIENTED. VSS. PERRLA. NO COMPLAINTS OF PAIN. PT IS UP WITH STAND BY ASSIST. PT IS IN SINUS RYTHM ON THE TELEMETRY. PT IS RESTING COMFORTABLY IN BED. RESPIRATIONS ARE EVEN AND NONLABORED. WILL CONTINUE TO MONITOR PT.
[2019-04-30 04:01] VITALS: BP 115/33
[2019-04-30 05:14] LABS: ABSOLUTE BASOPHILS 0.1 thou/uL (0.0-0.2); ABSOLUTE EOSINOPHILS 0.5 thou/uL (0.0-0.7); ABSOLUTE MONOCYTES 0.8 thou/uL (0.0-1.2); ABSOLUTE NEUTROPHILS 9.6 thou/uL (1.6-8.1); BASOPHILS 1.1 %; EOSINOPHILS 3.7 %; HEMATOCRIT 25.8 % (37.0-47.0); HEMOGLOBIN 8.7 gm/dL (12.0-15.0); LYMPHOCYTES 15.2 %; MCH 30.4 pg (26.0-34.0); MCHC 33.5 g/dL (28.0-37.0); MCV 90.6 fL (80.0-100.0); MONOCYTES 6.5 %; MPV 7.6 fl. (7.2-11.1); NUCLEATED RBCS 0 /100WBC; POLYS 73.5 %; RBC 2.85 mil/uL (4.20-5.00); RDW-CV 13.7 % (10.5-14.5)
[2019-04-30 05:18] LABS: PLATELET COUNT* 300 thou/uL (150-400)
[2019-04-30 05:21] LABS: CALCIUM 8.2 mg/dL (8.5-10.1); CREATININE 1.3 mg/dL (0.6-1.3)
[2019-04-30 05:26] LABS: POTASSIUM 4.2 mmol/L (3.5-5.1)
[2019-04-30 08:13] VITALS: BP 143/48
[2019-04-30] MEDS ORDERED: AMOX TR-K CLV1 EAC3 PO (10:12)
[2019-04-30] MEDS ORDERED: FEOSOL325 M1 PO (10:12)
[2019-04-30] MEDS ORDERED: LASIX 20 MG TAB20 MG PO (10:14)
[2019-04-30] MEDS ORDERED: ZESTRIL2.5 MG PO (10:14)
--- NOTE | 2019-04-30 10:48 | NUR ---
ASSUMED CARE OF PT THIS AM AROUND 0715- FOUNTAIN PEN NIBS INSPECTOR IN PLACE ORDERED, TRACING SR- UPON ASSESSMENT PT NOTED TO BE RESTING IN BED- PT A&O X2-3- CONTINENT OF B/B- SBA WITH RW FOR TRANSFERS- LCTA, RESP EVEN AND UN-LABORED- VSS, O2 SAT 96% ON RA- ABD SOFT/ROUND/NON-TENDER, BS X 4 QUADS- LAST BM REPORTED X2 DAYS AGO- IV NOTED TO RIGHT WRIST INTACT AND SL- GOOD PO INTAKE NOTED THIS AM WITH BREAKFAST, BS MONITORED ORDERED- PT DENIES ANY C/O PAIN/DISCOMFORT AT THIS TIME- CALL LIGHT AND PERSONAL BELONGINGS WITH IN REACH- HOURLY ROUNDS IN PLACE R/T SAFETY/NEED- ALL NEEDS MET AT THIS TIME-WCTM
[2019-04-30 12:12] VITALS: BP 134/48
--- NOTE | 2019-05-04 13:44 | EKG ---
[place] [address] ELECTROCARDIOGRAM REPORT Name: ADOLPH RAZA Room: [address] IN M.R.#: [id number] Admission: 04/25/19 Attend Phys: Dejuan Parish, Discharge: 04/30/19 Date of : 31 Date of Service: 04/26/19 0928 Report #: [id number] THIS REPORT FOR: cc: Kathy Ramirez,Tl Montero MD [facility] ~ THIS REPORT FOR: //name// [facility] Test Date: 2019-04-26 Test Time: 09:28:31 Pat Name: ADOLPH RAZA Department: Room: [address] Gender: F Sticker Machine Operator: KF : 1935 Requested By: Dejuan Parish Order Number: [id number] Reading MD: Tl Sun Measurements Intervals [place] Rate: 82 P: 35 SC: 208 QRS: 53 QRSD: 90 T: -50 QT: 442 QTc: 517 Interpretive Statements Sinus rhythm Anteroseptal infarct, age indeterminate Prolonged QT interval Compared to ECG 04/25/2019 08:07:24 Myocardial infarct finding now present Prolonged QT interval now present Electronically Signed On 04-26-2019 11:28:27 TERRAZZO FINISHER by Tl Sun [email or web address] <ELECTRONICALLY SIGNED> By: Tl Sun MD, [facility] 04/26/19 1128 7 7 Tl Sun MD, [facility] /EPI
--- NOTE | 2019-05-04 13:53 | EKG ---
[place] [address] ELECTROCARDIOGRAM REPORT Name: ADOLPH RAZA Room: [address] IN ..#: [id number] Admission: 04/25/19 Attend Phys: Dejuan Parish, Discharge: 04/30/19 Date of : 31 Date of Service: 04/25/19 0807 Report #: [id number] THIS REPORT FOR: cc: Kathy Ramirez,Tl Montero MD [facility] ~ THIS REPORT FOR: //name// [facility] ED Test Date: 2019-04-25 Test Time: 08:07:24 Pat Name: ADOLPH RAZA Department: Room: [facility] Gender: F Manager Physical: [facility] : 1935 Requested By: Matthew Negrete Order Number: [id number] MD: Tl Sun Measurements Intervals [place] Rate: 90 P: 54 VA: 214 QRS: 89 QRSD: 92 T: -49 QT: 385 QTc: 471 Interpretive Statements Sinus rhythm Borderline prolonged VA interval Borderline right axis deviation Borderline low voltage, extremity leads Probable LVH with secondary repol abnrm Compared to ECG 04/22/2019 13:46:32 Poor R-wave progression no longer present LEFT VENTRICULAR HYPERTROPHY noted Electronically Signed On 2-3-2020 11:23:44 SUCTION DREDGE DUMPING SUPERVISOR by Tl Sun [email or web address] <ELECTRONICALLY SIGNED> By: Tl Sun MD, [facility] 04/25/19 1123 6 6 Tl Sun MD, [facility] /EPI
== END 2019-04-30 13:35 | disposition home health service (06) | DRG 177 ==
LOC: M.ERS 07:57 → M.2W 09:52 → M.TBA-ER 09:52 → M.2W 11:35
PROVIDERS: Emergency Medicine Emergency Medical Services; Nurse Practitioner Adult Health; ADMIT Internal Medicine
PROC: 5A09357 Assistance with Respiratory Ventilation, Less than 24 Consecutive Hours, Continuous Positive Airway Pressure (ICD-10-PCS; principal; 2019-04-25)
PROC: 0D758ZZ Dilation of Esophagus, Via Natural or Artificial Opening Endoscopic (ICD-10-PCS; principal; 2019-04-25)
PROC: 5A09357 Assistance with Respiratory Ventilation, Less than 24 Consecutive Hours, Continuous Positive Airway Pressure (ICD-10-PCS; 2019-04-26)
DX: J15.6 Pneumonia due to other Gram-negative bacteria (principal); I50.31 Acute diastolic (congestive) heart failure; J96.90 Respiratory failure, unspecified, unspecified whether with hypoxia or hypercapnia; I13.0 Hypertensive heart and chronic kidney disease with heart failure and stage 1 through stage 4 chronic kidney disease, or unspecified chronic kidney disease; D72.829 Elevated white blood cell count, unspecified; E78.5 Hyperlipidemia, unspecified; D64.9 Anemia, unspecified; N18.3 Chronic kidney disease, stage 3 (moderate); K31.89 Other diseases of stomach and duodenum; H91.93 Unspecified hearing loss, bilateral; I08.3 Combined rheumatic disorders of mitral, aortic and tricuspid valves; K59.00 Constipation, unspecified; R13.10 Dysphagia, unspecified; M81.0 Age-related osteoporosis without current pathological fracture; R31.9 Hematuria, unspecified; I25.2 Old myocardial infarction; Z98.49 Cataract extraction status, unspecified eye; Z88.7 Allergy status to serum and vaccine; Z91.041 Radiographic dye allergy status; Z90.49 Acquired absence of other specified parts of digestive tract; Z79.899 Other long term (current) drug therapy; Z79.82 Long term (current) use of aspirin; Z83.3 Family history of diabetes mellitus; Z80.0 Family history of malignant neoplasm of digestive organs; Z85.038 Personal history of other malignant neoplasm of large intestine; Z86.73 Personal history of transient ischemic attack (TIA), and cerebral infarction without residual deficits

== ENCOUNTER → 2019-05-05 | Outpatient (CLI) | payer MEDICARE, BC ==
[~2019-05-05] MED LIST changes: +AMOX TR-K CLV1 EAC3 PO; +FEOSOL325 M1 PO; +LASIX 20 MG TAB20 MG PO; +ZESTRIL2.5 MG PO
[2019-05-05 15:26] LABS: CREATININE 1.4 mg/dL (0.6-1.3); POTASSIUM 3.2 mmol/L (3.5-5.1)
== END ==
LOC: M.LAB 14:50
PROVIDERS: Registered Nurse
DX: I35.0 Nonrheumatic aortic (valve) stenosis (principal)

== ENCOUNTER 2019-05-23 20:03 | Emergency (ER) | payer MEDICARE, BC ==
[~2019-05-23] VITALS: Ht 139.7 cm; Wt 48.5 kg
[2019-05-23 20:53] LABS: ABSOLUTE EOSINOPHILS 0.5 thou/uL (0.0-0.7); ABSOLUTE LYMPHOCYTES 3.6 thou/uL (0.8-5.3); ABSOLUTE MONOCYTES 0.7 thou/uL (0.0-1.2); ABSOLUTE NEUTROPHILS 3.9 thou/uL (1.6-8.1); BASOPHILS 0.2 %; EOSINOPHILS 5.4 %; HEMATOCRIT 26.5 % (37.0-47.0); HEMOGLOBIN 9.2 gm/dL (12.0-15.0); MCH 31.7 pg (26.0-34.0); MCHC 34.7 g/dL (28.0-37.0); MCV 91.5 fL (80.0-100.0); MONOCYTES 8.2 %; MPV 8.2 fl. (7.2-11.1); NUCLEATED RBCS 0 /100WBC; PLATELET COUNT* 273 thou/uL (150-400); POLYS 45.2 %; WBC 8.7 thou/uL (4.0-11.0)
[2019-05-23 21:00] LABS: CALCIUM 10.6 mg/dL (8.5-10.1); CREATININE 1.3 mg/dL (0.6-1.3); POTASSIUM 3.7 mmol/L (3.5-5.1)
[2019-05-23 21:05] LABS: ALBUMIN 3.5 g/dL (3.4-5.0); TOTAL BILIRUBIN 0.6 mg/dL (<0.1-1.0); TOTAL PROTEIN 6.8 g/dL (6.4-8.2)
[2019-05-23 21:25] LABS: URINE BILIRUBIN NEGATIVE (Negative); URINE BLOOD NEGATIVE (Negative); URINE CLARITY CLEAR; URINE COLOR YELLOW; URINE GLUCOSE-RANDOM NEGATIVE (Negative); URINE KETONES NEGATIVE (Negative); URINE LEUKOCYTES-REFLEX TRACE (Negative); URINE NITRITE-REFLEX NEGATIVE (Negative); URINE PROTEIN NEGATIVE (Negative); URINE SPECIFIC GRAVITY <= 1.005 (1.005-1.030); URINE UROBILINOGEN 0.2 E.U./dl (0.2-1.0)
[2019-05-23 21:32] LABS: BACTERIA-REFLEX None Seen /HPF (None Seen); CASTS None Seen /LPF (None Seen); CRYSTALS None Seen /LPF (None Seen); SQUAMOUS 0-3 Few /LPF (0-3); URINE RBC None Seen /HPF (0-2); URINE WBC-REFLEX 0-5 Rare /HPF (0-5)
[2019-05-23 23:04] VITALS: BP 155/59
--- NOTE | 2019-05-24 11:09 | EKG ---
[place] [address] ELECTROCARDIOGRAM REPORT Name: ADOLPH RAZA Room: [facility]#: [id number] Admission: 05/23/19 Attend Phys: Discharge: 05/23/19 Date of : 31 Date of Service: 05/23/192031 Report #: [id number] THIS REPORT FOR: //name// [facility] ED Test Date: 2019-05-23 Test Time: 20:32:23 Pat Name: ADOLPH RAZA Department: Room: Gender: F Asphalt Smoother: : 1935 Requested By: Otilia Gonzalez Order Number: [id number] Josesito MD: Tl Sun Measurements Intervals [place] Rate: 58 P: 54 [place]: 239 QRS: 41 QRSD: 85 T: -4 QT: 436 QTc: 429 Interpretive Statements Sinus rhythm Prolonged WA interval Consider left atrial enlargement Consider anterior infarct Repol abnrm suggests ischemia, anterolateral Artifact in lead(s) II,III,aVL,aVF,V1,V2,V3,V4,V6 Compared to ECG 04/26/2019 09:28:31 First degree AV block now present Prolonged QT interval no longer present Myocardial infarct finding still present Electronically Signed On 05-24-2019 11:08:12 CLIENT SERVER DEVELOPER by Tl Sun [email or web address] <ELECTRONICALLY SIGNED> By: Tl Sun MD, [facility] 05/24/19 1108 31 31 Tl Sun MD, [facility] /EPI
== END 2019-05-23 23:04 | disposition home or self-care (01) ==
LOC: M.ERS 20:03
PROVIDERS: Emergency Medicine
DX: I11.0 Hypertensive heart disease with heart failure (principal); I50.9 Heart failure, unspecified; E78.5 Hyperlipidemia, unspecified; M81.0 Age-related osteoporosis without current pathological fracture; Z91.041 Radiographic dye allergy status; Z88.8 Allergy status to other drugs, medicaments and biological substances

== ENCOUNTER 2019-08-22 10:22 | Inpatient (IN) | payer MEDICARE, BC ==
[~2019-08-22] VITALS: Ht 144.8 cm; Wt 49.9 kg
[2019-08-22 10:27] VITALS: BP 163/105
[2019-08-22 10:59] LABS: ABSOLUTE BASOPHILS 0.2 thou/uL (0.0-0.2); ABSOLUTE EOSINOPHILS 0.5 thou/uL (0.0-0.7); ABSOLUTE LYMPHOCYTES 4.2 thou/uL (0.8-5.3); ABSOLUTE MONOCYTES 1.6 thou/uL (0.0-1.2); ABSOLUTE NEUTROPHILS 13.1 thou/uL (1.6-8.1); BASOPHILS 1.1 %; EOSINOPHILS 2.4 %; HEMATOCRIT 33.4 % (37.0-47.0); HEMOGLOBIN 11.5 gm/dL (12.0-15.0); LYMPHOCYTES 21.7 %; MCH 31.8 pg (26.0-34.0); MCHC 34.4 g/dL (28.0-37.0); MCV 92.5 fL (80.0-100.0); NUCLEATED RBCS 0 /100WBC; PLATELET COUNT* 319 thou/uL (150-400); POLYS 66.8 %; RBC 3.61 mil/uL (4.20-5.00); WBC 19.5 thou/uL (4.0-11.0)
[2019-08-22] MEDS ORDERED: MEDROL4 MG PO (11:05)
[2019-08-22] MEDS ORDERED: TYLENOL WITH CO1 TA1 PO (11:05)
[2019-08-22 11:09] LABS: APTT 22.5 Seconds (25.0-31.3); CALCIUM 9.9 mg/dL (8.5-10.1); CREATININE 1.4 mg/dL (0.6-1.3); INR 1.1; PROTIME 11.3 Seconds (9.20-11.50)
[2019-08-22 11:13] LABS: POTASSIUM 2.8 mmol/L (3.5-5.1)
[2019-08-22 11:19] LABS: ALBUMIN 3.9 g/dL (3.4-5.0); MAGNESIUM 1.4 mg/dL (1.8-2.4); TOTAL BILIRUBIN 0.9 mg/dL (<0.1-1.0); TOTAL PROTEIN 7.8 g/dL (6.4-8.2)
[2019-08-22 15:53] VITALS: BP 168/53
--- NOTE | 2019-08-22 18:45 | NUR ---
PT ARRIVED TO UNIT AT APPROX 1600 VIA CART, REPORT TAKEN FROM VAISHALI MCKINNEY. PT A&O X4, VSS, SAO2 99% ON 2LPM UPON ARRIVAL, TITRATED OFF O2, STABLE AT 94% RA WITH NO S/S DYSPNEA. PT IS UP WITH WALKER AND STANBY ASSIST. BOYKIN IN PLACE AND DRAINING CLOUDY, BLOOD TINGED URINE. PT DID PULL OUT BOYKIN STATING SHE "FORGOT IT WAS THERE" UPON WAKING UP. BOYKIN REMOVED, PT WAS ABLE TO VOID. URINE DOES HAVE BRIGHT RED BLOOD, PT DENIES ANY PAIN. COVID PRECAUTIONS IN PLACE WHILE TEST IS PENDING, ORIENTED TO CALL LIGHT AND ROOM, THIS NURSE SPOKE WITH FAMILY IN [facility] TO PATIENTS CARE, HOURLY ROUNDING COMPLETED.
[2019-08-22 20:15] VITALS: BP 117/80
[2019-08-23 00:33] VITALS: BP 134/81
[2019-08-23 04:45] VITALS: BP 142/41
[2019-08-23 06:08] LABS: HEMATOCRIT 27.8 % (37.0-47.0); HEMOGLOBIN 9.8 gm/dL (12.0-15.0); MCH 32.1 pg (26.0-34.0); MCHC 35.3 g/dL (28.0-37.0); MCV 90.8 fL (80.0-100.0); MPV 9.5 fl. (7.2-11.1); RBC 3.06 mil/uL (4.20-5.00); RDW-CV 12.8 % (10.5-14.5); WBC 14.1 thou/uL (4.0-11.0)
[2019-08-23 06:14] LABS: CALCIUM 9.8 mg/dL (8.5-10.1); CREATININE 1.3 mg/dL (0.6-1.3); MAGNESIUM 1.7 mg/dL (1.8-2.4); POTASSIUM 3.4 mmol/L (3.5-5.1)
--- NOTE | 2019-08-23 06:28 | NUR ---
PT SLEPT ON AND OFF THIS SHIFT. ASSESSMENT DOCUMENTED. MEDS GIVEN PER E-MAY. IV PATENT, NEW IV STARTED PT PULLED OUT OTHER. ELECTROLYTES REPLACED PER E-MAY. PT IMPULSIVE THORUGH NIGHT, JUMPING OUT OF BED, PULLING OFF HEART MONITOR AND GOWN. FALL PRECAUTIONS IN PLACE. PTS URINE BLOOD TINGED PT PULLED OUT BOYKIN PREVIOUS SHIFT. WILL CONTINUE WITH PLAN OF CARE.
[2019-08-23 08:43] VITALS: BP 146/42
--- NOTE | 2019-08-23 09:09 | CON ---
[address] [address] CONSULTATION Name: ADOLPH RAZA Room: [address] IN M.R.#: [id number] Admission: 08/22/19 Attend Phys: Dre Tucker MD Discharge: Date of : 31 Report #: [id number] THIS REPORT FOR: //name// cc: Kathy Ramirez Linda J. DO ~ THIS REPORT FOR: //name// CC: Dre Ramirez DO DATE OF SERVICE: 08/22/2019 CARDIOLOGY CONSULTATION HISTORY OF PRESENT ILLNESS: The patient is an 83-year-old single white female who I was asked to see in the hospital today after she currently being short of breath. The patient has a long history of a heart murmur. She has been followed by my partner, Dr. Ladarius Peña. She recently saw my nurse practitioner, Felipa Tavarez a week ago in the Cardiology Clinic who recommended that she be referred for TAVR. The patient was just discharged from the hospital. She complains of fatigue. She falls asleep during the day. She denied any chest discomfort, palpitations, syncope. She has felt dizzy. Recently, she has had a cough, but denies any fever, lower extremity edema. She has had no bleeding. She came to the Emergency Room today and was admitted for further evaluation and treatment. PAST MEDICAL HISTORY: Significant for cataract extraction, shoulder surgery, hypertension. No history of diabetes. Hyperlipidemia. She has a history of chronic kidney disease, mild plaque formation. She is hard of hearing. She had a skin cancer removed in the past. CURRENT MEDICATIONS: Consist of the following: She is on aspirin, Lipitor, Lasix, lisinopril, metoprolol. ALLERGIES: SHE HAS AN ALLERGY TO IODINE CONTRAST AGENTS. FAMILY HISTORY: Her mother had diabetes. SOCIAL HISTORY: She has been twice, currently lives by herself in [place]. No smoking or alcohol abuse. REVIEW OF SYSTEMS: She has had no history of stroke. No history of asthma, liver disease. She has had a skin cancer removed in the past. No psychiatric illness. [place] [address] CONSULTATION Name: ADOLPH RAZA Room: [address]#: [id number] Admission: 08/22/19 Attend Phys: Dre Tucker MD Discharge: Date of : 31 Report #: [id number] PHYSICAL EXAMINATION: GENERAL: Revealed an elderly frail appearing female, lying in bed. She appeared in no distress. VITAL SIGNS: Blood pressure is 160/90, pulse is 70. She is afebrile. HEENT: She was anicteric. Conjunctivae are pink. Mucous membranes were dry. NECK: Veins do not appear distended. CHEST: Clear to auscultation. CARDIOVASCULAR: Regular rate and rhythm, grade 4 systolic ejection murmur along the left sternal border. ABDOMEN: Soft. EXTREMITIES: Had no pitting edema. SKIN: Cool and dry. NEUROLOGIC: Nonfocal. RADIOLOGICAL DATA: ECG shows a sinus rhythm with left ventricular hypertrophy and repolarization changes. Her echocardiogram done in April. Ejection fraction 65%, moderate aortic insufficiency, severe aortic stenosis, moderate mitral regurgitation. LABORATORY DATA: She had lab work in the Emergency Room today, sodium 141, potassium 2.8, BUN 15, creatinine 1.4, it has been as high as 5.0 in March of this year. Her liver function studies were normal. Troponin 0.06. BNP 6852. Her TSH in March was 1.6. Her white blood cell count 19.5, hemoglobin 11.5. Her chest x-ray in the Emergency Room today, she had normal heart size, mild interstitial lung markings. No infiltrate, no change. IMPRESSION AND RECOMMENDATIONS: 1. Shortness of breath, suspect secondary to aortic stenosis. I suspect the patient will continue to be short of breath until she undergoes TAVR. No evidence of pneumonia, chronic obstructive pulmonary disease or pulmonary embolus at this time. 2. Severe aortic stenosis. 3. Hypertension. Blood pressure noted to be elevated. The patient has been on an HUNG inhibitor and beta ronak. 4. Hyperlipidemia. The patient is on a statin drug. 5. Chronic kidney disease. 6. Cough, rule out COVID-19. <ELECTRONICALLY SIGNED> By: Tl Sun MD, [facility] 08/23/19 0909 1647 1805Tl Sun MD, FACC /nt
--- NOTE | 2019-08-23 12:37 | NUR ---
SPOKE WITH PATIENTS DAUGHTER RODRIGO THIS AM, UPDATE GIVEN ON PLAN OF CARE.
--- NOTE | 2019-08-23 13:27 | EKG ---
[place] [address] ELECTROCARDIOGRAM REPORT Name: ADOLPH RAZA Room: [address] IN .R.#: [id number] Admission: 08/22/19 Attend Phys: Dre Tucker, Discharge: Date of : 31 Date of Service: 08/22/19 1025 Report #: [id number] THIS REPORT FOR: //name// [facility] ED Test Date: 2019-08-22 Test Time: 10:25:35 Pat Name: ADOLPH RAZA Department: Room: [facility] Gender: F Asphalt Machine Operator: PASCALE : 1935 Requested By: Cristian Tate Order Number: [id number] MD: Ladarius Peña Measurements Intervals [place] Rate: 110 P: 76 NH: 230 QRS: 86 QRSD: 95 T: -87 QT: 338 QTc: 458 Interpretive Statements Sinus tachycardia Multiple premature supraventricular complexes Prolonged [place] interval Probable anterior infarct, old Compared to ECG 05/23/2019 20:32:23 Sinus rhythm no longer present Early repolarization no longer present Possible ischemia no longer present Myocardial infarct finding still present Electronically Signed On 08-23-2019 13:25:45 CDT by Ladarius Peña [email or web address] <ELECTRONICALLY SIGNED> By: Ladarius Peña MD, FAC 08/23/19 1325 1025 1025 Ladarius Peña MD, [facility] /EPI
[2019-08-23 14:23] VITALS: BP 106/35
--- NOTE | 2019-08-23 14:41 | NUR ---
DR. PAYTON NOTIFIED AT THIS TIME THAT PATIENT IS COVID NEGATIVE. THIS NURSE WAS TOLD IN SHIFT REPORT THAT PER DR. NICHOLS PATIENT SHOULD DISCHARGE HOME IF COVID NEGATIVE TO RETURN FOR CARDIOLOGY PROCEDURE ON THURSDAY. PER DR. PAYTON PATIENT NOT DISCHARGING TODAY.
--- NOTE | 2019-08-23 15:20 | NUR ---
SPOKE WITH DR. NICHOLS NOTIFIED THAT PATIENT WAS COVID NEGATIVE AND OK TO STOP TELEMETRY. PATIENT TRANSFERRED TO ROOM 103 AND REPORT GIVEN TO VAISHALI OROZCO AT THIS TIME. PATIENTS DAUGHTER RODRIGO UPDATED ON PLAN OF CARE.
--- NOTE | 2019-08-23 18:23 | NUR ---
PT A&OX4 WITH EPISODES OF CONFUSION AT NIGHT. THIS IS REPORTED TO BE BASELINE PER PT DGTR. PT [place]. PT CONTINUERS TO HAVE DRY, NON-PROD COUGH. PT COVID RESULTED NEGATIVE AND WAS MOPVED TO M/S ROOM OUTSIDE OF ISOLATION UNIT. PT LIKELY TO DC TOMORROW. IV TO RAC PATENT AND SALINE LOCKED. FALL PRECAUTIONS IN PLACE. PT UP TO BSC SBA FOR STABILITY. PT CONTINUES TO HAVE ISSUES WITH STRESS INCONTINENCE, ESPECIALLY WHEN SHE HAS COUGHING SPELLS. PT RESTS IN BED WITH CALL LIGHT IN REACH, WILL CONTINUE TO MONITOR.
[2019-08-23 20:15] VITALS: BP 155/42
--- NOTE | 2019-08-24 06:39 | NUR ---
PT SLEPT FAIRLY WELL OVERNIGHT. SETTING OFF BED ALARM ONCE OVERNIGHT GETTING OUT OF BED TO BSC UNASSISTED, EDUCATION GIVEN. PT AO TO SELF AND SITUATION, FORGETFUL AND CONFUSED AT TIMES, PLEASANT. OCC LICENSED LIFE AND HEALTH AGENT COUGH HEARD, STRESS INCONTINENCE WITH COUGH-CLEO CARE GIVEN. RFA SL IV. N[place]ALTON. UP WITH MIN ASSIST TO BSC TO VOID. AM LABS TO BE DRAWN THIS MORNING, TO HAVE CXR THIS MORNING. HAS DENIED PAIN OR PROBLEMS THIS SHIFT. POSSIBLE DC HOME TODAY. CALL LITE IN EASY REACH, BED ALARM ON FOR SAFETY.
[2019-08-24 07:30] VITALS: BP 158/41
[2019-08-24 08:38] LABS: CALCIUM 9.8 mg/dL (8.5-10.1); CREATININE 1.4 mg/dL (0.6-1.3); MAGNESIUM 2.1 mg/dL (1.8-2.4); POTASSIUM 4.8 mmol/L (3.5-5.1)
[2019-08-24 08:52] VITALS: BP 158/41
[2019-08-24] MEDS ORDERED: ACETAMINOPHEN PO (09:58)
[2019-08-24] MEDS ORDERED: COZAAR 25 MG TA25 M1 PO (09:58)
[2019-08-24] MEDS ORDERED: zithromax PO (10:39)
[2019-08-24] MEDS ORDERED: CEFDINIR300 MG PO (10:40)
--- NOTE | 2019-08-24 12:54 | NUR ---
PATIENT DISCHARGED TO HOME THIS AFTERNOON WITH DAUGHTER. IV DC'D. DR. NICHOLS HERE AND OK FOR PATIENT TO DISCHARGE. PATIENT TO HAVE CARDIAC CATH TOMORROW AT [address] MORALES, PATIENTS DAUGHTER RODRIGO AWARE. PATIENT UP AND OUT OF BED WITHOUT DIFFICULTY. CXR RESULTS READ TO DR. NICHOLS AND PRIMO, RYLEY. PATIENT ASSISTED WITH DRESSING AND DISCHARGE PAPERS INSTRUCTED TO PATIENTS ALEXI RODRIGO. PATIENT TAKEN OUT VIA WHEELCHAIR.
[2019-08-25] MEDS ORDERED: PRINIVIL10 MG PO (08:43)
[2019-08-25] MEDS ORDERED: GUAIFEN-CODEINE10 ML PO (09:07)
[2019-08-25] MEDS ORDERED: CEFDINIR300 MG PO (10:50)
[2019-08-25] MEDS ORDERED: ZITHROMAX250 MG PO (10:51)
== END 2019-08-24 12:15 | disposition home or self-care (01) | DRG 871 ==
LOC: M.ERS 10:22 → M.ORTHSURG 12:23 → M.TBA-ER 12:23 → M.ORTHSURG 16:11
PROVIDERS: Family Medicine; Internal Medicine Cardiovascular Disease; ADMIT Internal Medicine
DX: A41.9 Sepsis, unspecified organism (principal); J69.0 Pneumonitis due to inhalation of food and vomit; J96.01 Acute respiratory failure with hypoxia; I50.33 Acute on chronic diastolic (congestive) heart failure; I13.0 Hypertensive heart and chronic kidney disease with heart failure and stage 1 through stage 4 chronic kidney disease, or unspecified chronic kidney disease; I35.2 Nonrheumatic aortic (valve) stenosis with insufficiency; E78.5 Hyperlipidemia, unspecified; M81.0 Age-related osteoporosis without current pathological fracture; N18.3 Chronic kidney disease, stage 3 (moderate); I27.20 Pulmonary hypertension, unspecified; I25.10 Atherosclerotic heart disease of native coronary artery without angina pectoris; R13.10 Dysphagia, unspecified; D64.9 Anemia, unspecified; R73.03 Prediabetes; Z20.828 Contact with and (suspected) exposure to other viral communicable diseases; I25.2 Old myocardial infarction; Z85.038 Personal history of other malignant neoplasm of large intestine; Z90.49 Acquired absence of other specified parts of digestive tract; Z98.49 Cataract extraction status, unspecified eye; Z79.899 Other long term (current) drug therapy; Z79.82 Long term (current) use of aspirin; Z88.7 Allergy status to serum and vaccine; Z91.041 Radiographic dye allergy status; Z85.828 Personal history of other malignant neoplasm of skin

== ENCOUNTER 2019-08-25 09:12 | Inpatient (IN) | payer MEDICARE, BC ==
[2019-08-25] VITALS (42 sets, daily range): BP systolic 99–177; BP diastolic 26–102
[~2019-08-25] VITALS: Ht 139.7 cm; Wt 50.3 kg
[~2019-08-25 09:12] MED LIST changes: +ACETAMINOPHEN PO; +CEFDINIR300 MG PO; +COZAAR 25 MG TA25 M1 PO; +GUAIFEN-CODEINE10 ML PO; +MEDROL4 MG PO; +PRINIVIL10 MG PO; +SENOKOT-S TABL1 EACH PO; -Senokot-S PO; +TYLENOL WITH CO1 TA1 PO; +zithromax PO
[2019-08-25 10:08] LABS: HEMOGLOBIN 10.5 gm/dL (12.0-15.0); MCH 31.6 pg (26.0-34.0); MCV 93.1 fL (80.0-100.0); MPV 9.3 fl. (7.2-11.1); RBC 3.33 mil/uL (4.20-5.00); RDW-CV 13.2 % (10.5-14.5); WBC 19.9 thou/uL (4.0-11.0)
[2019-08-25 10:20] LABS: ANION GAP 8 mmol/L (7-16); BUN 38 mg/dL (7-18); CALCIUM 10.4 mg/dL (8.5-10.1); CHLORIDE 101 mmol/L (98-107); CO2 28 mmol/L (21-32); CREATININE 1.8 mg/dL (0.6-1.3); GLUCOSE 124 mg/dL (70-99); POTASSIUM 4.8 mmol/L (3.5-5.1); SODIUM 137 mmol/L (136-145)
[2019-08-25 10:27] LABS: ALBUMIN 3.7 g/dL (3.4-5.0); ALKALINE PHOSPHATASE 72 U/L (46-116); CHOLESTEROL 165 mg/dL (<200); HDL CHOLESTEROL 55 mg/dL (>40); LDL CHOLESTEROL 86 mg/dL (<100); SGOT 21 U/L (15-37); SGPT 33 U/L (30-65); TOTAL BILIRUBIN 0.7 mg/dL (<0.1-1.0); TOTAL PROTEIN 7.6 g/dL (6.4-8.2); TRIGLYCERIDE 122 mg/dL (<150); VLDL 24 mg/dL (<40)
[2019-08-25 10:28] LABS: SERUM ASSESSMENT Clear
[2019-08-25 10:47] LABS: APTT 23.2 Seconds (25.0-31.3); INR 1.1; PROTIME 10.9 Seconds (9.20-11.50)
[2019-08-25] MEDS ORDERED: CEFDINIR300 MG PO (10:50)
[2019-08-25] MEDS ORDERED: ZITHROMAX250 MG PO (10:51)
--- NOTE | 2019-08-25 11:07 | EKG ---
[place] [address] ELECTROCARDIOGRAM REPORT Name: ADOLPH RAZA Room: [facility]#: [id number] Admission: 08/25/19 Attend Phys: Ladarius Peña, Discharge: Date of : 31 Date of Service: 08/25/19 1012 Report #: [id number] THIS REPORT FOR: //name// [facility] Test Date: 2019-08-25 Test Time: 10:12:40 Pat Name: ADOLPH RAZA Department: Room: Gender: Automotive Quality Manager: : 1935 Requested By: Ladarius Peña Order Number: [id number] Reading MD: Ladarius Peña Measurements Intervals [place] Rate: 51 P: 52 TX: 189 QRS: 40 QRSD: 98 T: 27 QT: 472 QTc: 435 Interpretive Statements Sinus rhythm Borderline low voltage, extremity leads Probable left ventricular hypertrophy Compared to ECG 08/22/2019 10:25:35 Sinus tachycardia no longer present Atrial premature complex(es) no longer present First degree AV block no longer present Myocardial infarct finding no longer present Electronically Signed On 08-25-2019 11:04:57 CDT by Ladarius Peña [email or web address] <ELECTRONICALLY SIGNED> By: Ladarius Peña MD, FACC 08/25/19 1104 1012 1012 Ladarius Peña MD, FAC /EPI
--- NOTE | 2019-08-25 14:21 | EKG ---
[place] [address] ELECTROCARDIOGRAM REPORT Name: ADOLPH RAZA Room: [address]R.#: [id number] Admission: 08/25/19 Attend Phys: Ladarius Peña, Discharge: Date of : 31 Date of Service: 08/25/19 1348 Report #: [id number] THIS REPORT FOR: //name// [facility] Test Date: 2019-08-25 Test Time: 13:48:30 Pat Name: ADOLPH RAZA Department: Room: [place] [address] Gender: F Quality Control Inspector Heading: : 1935 Requested By: Ladarius Peña Order Number: [id number] Josesito MD: Tl Sun Measurements Intervals [place] Rate: 56 P: 42 TX: 151 QRS: 66 QRSD: 88 T: 41 QT: 479 QTc: 463 Interpretive Statements Sinus bradycardia Probable left ventricular hypertrophy Compared to ECG 08/25/2019 10:12:40 No significant changes Electronically Signed On 08-25-2019 14:18:53 CDT by Tl Sun [email or web address] <ELECTRONICALLY SIGNED> By: Tl Sun MD, [facility] 08/25/19 1418 1348 1348 Tl Sun MD, [facility] /EPI
[2019-08-25 15:37] LABS: MCH 31.5 pg (26.0-34.0); MCHC 33.9 g/dL (28.0-37.0); RBC 2.26 mil/uL (4.20-5.00); RDW-CV 13.3 % (10.5-14.5); WBC 12.4 thou/uL (4.0-11.0)
[2019-08-25 15:42] LABS: HEMOGLOBIN 7.1 gm/dL (12.0-15.0)
[2019-08-25 15:43] LABS: CALCIUM 8.6 mg/dL (8.5-10.1); CREATININE 1.5 mg/dL (0.6-1.3); POTASSIUM 4.7 mmol/L (3.5-5.1)
--- NOTE | 2019-08-25 16:54 | NUR ---
BEDSIDE REPORT GIVEN BY SHERIE TOM AND DR. MORALES. BED LOW AND LOCKED, SIDE RAILS UPX3, CALL LIGHT IN REACH, RIGHT GROIN ASSESSED WITH DR MORALES AND IS CDI. WILL TRSNSFUSE 1 UNIT PRBCS WHEN READY. WILL CONTINUTE TO ASSESS.
--- NOTE | 2019-08-25 19:17 | NUR ---
PT ARRIVED TO UNIT AT 1845 THIS EVENING. PT ON VENTILATOR AND SEDATED WITH VERSED. ET AND OG TUBE IN PLACE, BOYKIN WITH TEMP SENSING PROBE IN PLACE. PT BEGAN TO DESAT INTO THE 80'S, TURN FIO2 TO 100 PERCENT AND SUCTION. PT SOON RECOVERED TO SPO2 OF 96 PERCENT ON FIO2 OF 75 PERCENT. REPORT GIVEN TO JADYN TOM.
--- NOTE | 2019-08-25 20:00 | NUR ---
RECEIVED REPORT AND ASSUMED CARE OF PT, ASSESSMENT COMPLETED. BLOOD TRANSFUSION COMPLETED WITHOUT INCIDENT. RT GROIN CATH DRSG DRY AND INTACT. NO ECCHYMOSIS OR DRAINAGE. RLQ ABD FIRM AND TENDER TO TOUCH. PT RESTLESS AND WILL NOT HOLD LEG STRAIGHT. PT HAS HX OF DEMENTIA SO CONSTANT REMINDER TO STRAIGHTEN RT LEG. SEARCH MARKETING COORDINATOR SHOWING SB. WILL CONT TO MONITOR AND ASSIST NEEDED.
[2019-08-25 21:33] LABS: HEMATOCRIT 30.2 % (37.0-47.0)
[2019-08-25 21:34] LABS: HEMOGLOBIN 10.2 gm/dL (12.0-15.0)
[2019-08-26] VITALS (44 sets, daily range): BP systolic 88–194; BP diastolic 31–84
--- NOTE | 2019-08-26 | NUR ---
PT ABLE TO SLEEP BETWEEN APPROX 2100 AND NOW KEEPING RT LEG STRAIGHT. NO INCREASE IN RLQ RETROPERITONEAL BLEED. NO ECCHYMOSIS NOTED. RT GROIN SITE REMAINS DRY AND INTACT. DR NICHOLS MADE AWARE OF HGB RESULTS. NO CHANGE IN ASSESSMENT.
--- NOTE | 2019-08-26 04:00 | NUR ---
RESTING WELL, OCC WAKING AND CONFUSED, EASILY REDIRECTED. RT GROIN REMAINS WITHOUT DRAINAGE.
[2019-08-26 04:58] LABS: HEMATOCRIT 27.2 % (37.0-47.0); HEMOGLOBIN 9.2 gm/dL (12.0-15.0); MCH 32.1 pg (26.0-34.0); MCHC 33.8 g/dL (28.0-37.0); MPV 8.8 fl. (7.2-11.1); RBC 2.86 mil/uL (4.20-5.00); RDW-CV 14.2 % (10.5-14.5); WBC 15.9 thou/uL (4.0-11.0)
[2019-08-26 05:49] LABS: CALCIUM 8.6 mg/dL (8.5-10.1); CREATININE 1.5 mg/dL (0.6-1.3); POTASSIUM 4.7 mmol/L (3.5-5.1)
--- NOTE | 2019-08-26 07:07 | NUR ---
SLEPT WELL TONIGHT. WHEN AWAKE CONFUSED BUT ABLE TO REORIENTATE EASILY. NO INCREASE IN RETRO BLEED. VS STABLE. NO CHANGE IN ASSESSMENT. HS GOALS OF REST AND SAFETY ACHIEVED.
--- NOTE | 2019-08-26 10:35 | EKG ---
[place] [address] ELECTROCARDIOGRAM REPORT Name: LUZ MARINAADOLPH Room: [address] ADM IN M.R.#: [id number] Admission: 08/25/19 Attend Phys: Ladarius Peña, Discharge: Date of : 31 Date of Service: 08/26/19 0355 Report #: [id number] THIS REPORT FOR: //name// [facility] Test Date: 2019-08-26 Test Time: 03:55:54 Pat Name: ADOLPH RAZA Department: Room: [address] Gender: F Inclusion Manager: CON : 1935 Requested By: Tl Sun Order Number: [id number] Josesito MD: Tl Sun Measurements Intervals [place] Rate: 58 P: 51 [place]: 179 QRS: 39 QRSD: 89 T: 28 QT: 477 QTc: 469 Interpretive Statements Sinus rhythm Borderline low voltage, extremity leads Compared to ECG 08/25/2019 13:48:30 no change Electronically Signed On 08-26-2019 10:32:52 CDT by Tl Sun [email or web address] <ELECTRONICALLY SIGNED> By: Tl Sun MD, [facility] 08/26/19 1032 0355 0355 Tl Sun MD, [facility] /EPI
--- NOTE | 2019-08-26 10:41 | H ---
[place] [address] HISTORY AND PHYSICAL Name: ADOLPH RAZA Room: [address] IN .R.#: [id number] Admission: 08/25/19 Attend Phys: Ladarius Peña MD Discharge: Date of : 31 Report #: [id number] THIS REPORT FOR: //name// cc: Kathy Ramirez Linda J. DO THIS REPORT FOR: //name// CC: Kathy Mccoy DATE OF SERVICE: 08/25/2019 INDICATION: 1. Aortic stenosis. 2. Coronary artery disease, status post intervention. 3. Retroperitoneal bleed. HISTORY OF PRESENT ILLNESS: The patient is a very pleasant 83-year-old white female with a history of severe aortic stenosis. She was hospitalized recently with an episode of heart failure felt to be at least in part due to her severe aortic stenosis. Prior to elective transcutaneous aortic valve replacement, the patient underwent left heart catheterization and coronary angiography today to evaluate for any underlying coronary artery disease. She was found to have a significant mid right coronary artery stenosis for which she underwent drug-eluting stent placement with a single stent. The patient had excellent result with this. She unfortunately developed significant retroperitoneal bleed post-procedurally. The patient was taken to the ICU for continued treatment and will receive blood transfusions to stabilize hemoglobin. She is not complaining of chest pain at this time. PAST MEDICAL HISTORY: 1. Severe aortic stenosis, non-rheumatic. 2. Coronary artery disease, status post intervention with drug-eluting stent placement to the right coronary artery today. 3. Hypertension. 4. Dyslipidemia. 5. Moderate mitral insufficiency. 6. Chronic renal insufficiency. FAMILY HISTORY: Noncontributory. SOCIAL HISTORY: The patient has family that assist in her care. She lives at home. She does not smoke or drink alcohol. REVIEW OF SYSTEMS: [place] [address] HISTORY AND PHYSICAL Name: ADOLPH RAZA Room: [address] IN [facility]#: [id number] Admission: 08/25/19 Attend Phys: Ladarius Peña MD Discharge: Date of : 31 Report #: [id number] GENERAL: She denies fevers, chills, sweats. She has had no change in appetite. She denies any bleeding problems. She denies chest pain. She has had some dyspnea, but no orthopnea or paroxysmal nocturnal dyspnea. She has had no nausea or vomiting prior to admission. She has no complaints. She has arthritis, but no other musculoskeletal complaints. She is without neurologic complaint. PHYSICAL EXAMINATION: VITAL SIGNS: Presently, blood pressure is 132/48, pulse is 62 and regular. GENERAL: This is an elderly female, somewhat pale appearing, but stable. She is not in acute distress. HEENT: Head is normocephalic, atraumatic. Extraocular muscles intact. Mucous membranes moist. NECK: Shows no jugular venous distention. There is a cardiac murmur that radiates to the carotids bilaterally. CHEST: Reveals clear lung meng. CARDIOVASCULAR: Reveals a regular rhythm with grade 3/6 systolic ejection murmur. ABDOMEN: Reveals a mildly distended abdomen, it is nontender. Bowel sounds present. EXTREMITIES: Shows no edema. SKIN: Dry. LABORATORY DATA: Hemoglobin prior to procedure was 10.1, postprocedure is 7.1. She is being transfused. Other labs pending. IMPRESSION AND RECOMMENDATIONS: 1. Coronary artery disease, status post drug-eluting stent placement to the mid right coronary artery. Continue antiplatelet therapy once stabilized. 2. Hyperlipidemia. Continue current statin agent. 3. Severe aortic stenosis, planning transcutaneous aortic valve replacement in the near future. 4. Moderate mitral insufficiency. We will treat medically. 5. Hypertension. Blood pressure low normal presently. 6. Chronic renal insufficiency. Repeat labs in a.m. <ELECTRONICALLY SIGNED> By: Ladarius Peña MD, FACC 08/26/19 1041 1651 1704Micnate Peña MD, FACC /nt
--- NOTE | 2019-08-26 17:19 | NUR ---
ICU ROUNDS: Pt will be tele status tomorrow. CM spoke with DIL via phone. Pt resides at home and her dtr, Shabnam has been staying with her. Family aware that Pt's cognition is declining and have plans to f/u with a neuropsychiatrist in a few weeks. No DME. Hx of [facility]. [place], dtr wants . Shabnam plans to continue to stay with Pt through Nov, plan to secure placement at either an [facility] or memory care unit after that. Following. [facility] f:[phone]
--- NOTE | 2019-08-26 17:27 | NUR ---
PT FORGETFUL AND CONFUSED AT TIMES. BOYKIN TO DD. DENIES PAIN. NO PROGRESSION OF RETROPERINEAL BLEED. PROGRESSING TOWARDS GOALS.
--- NOTE | 2019-08-26 19:30 | NUR ---
RECEIVED REPORT AND ASSUMED CARE OF PT, ASSESSMENT COMPLETED. ASSISTED PT TO CHAIR, TRANSFERS WELL. RLQ ABD REMAINS FIRM AND TENDER, NO INCREASE IN SIZE. PT CONFUSED WITH FREQ QUESTIONS OF WHY AM I HERE? HEATER FURNACE ON SHOWING SR. WILL CONT TO MONITOR AND ASSIST NEEDED.
[2019-08-27] VITALS (14 sets, daily range): BP systolic 147–203; BP diastolic 36–93
[2019-08-27 05:18] LABS: CALCIUM 8.7 mg/dL (8.5-10.1); CREATININE 1.4 mg/dL (0.6-1.3); POTASSIUM 4.1 mmol/L (3.5-5.1)
[2019-08-27 06:00] LABS: HEMATOCRIT 22.3 % (37.0-47.0); HEMOGLOBIN 7.6 gm/dL (12.0-15.0); MCH 32.1 pg (26.0-34.0); MCHC 34.2 g/dL (28.0-37.0); MCV 93.9 fL (80.0-100.0); MPV 8.9 fl. (7.2-11.1); RBC 2.38 mil/uL (4.20-5.00); RDW-CV 13.7 % (10.5-14.5); WBC 15.3 thou/uL (4.0-11.0)
--- NOTE | 2019-08-27 06:15 | NUR ---
SLEPT WELL TONIGHT. MOVES SELF IN BED FOR COMFORT. RT GROIN WITHOUT INCIDENT. RLQ REMAINS FIRM AND TENDER. NO CHANGE IN ASSESSMENT. DISPATCHER CLERK SHOWING SR. HS GOALS OF REST AND SAFETY ACHIEVED.
[2019-08-27] MEDS ORDERED: EFFIENT10 MG PO (13:09)
--- NOTE | 2019-08-27 14:10 | NUR ---
pt discharged home. copy of paperwork to pt with explaination. pt verbalized understanding. precription given to pt. iv access x2 removed. pt taken per wheelchair to private vehichle.
--- NOTE | 2019-08-29 12:51 | D ---
[address] [address] DISCHARGE SUMMARY Name: ADOLPH RAZA Room: [address] IN M.R.#: [id number] Admission: 08/25/19 Attend Phys: Ladarius Peña MD Discharge: 08/27/19 Date of : 31 Report #: [id number] THIS REPORT FOR: //name// cc: Kathy Ramirez Linda J. DO THIS REPORT FOR: //name// CC: Kathy Peña DATE OF SERVICE: 08/27/2019 DISCHARGE DIAGNOSES: 1. Aortic stenosis. 2. Coronary artery disease. 3. Hypertension. 4. Hyperlipidemia. 5. Chronic kidney disease. 6. Severe aortic stenosis. 7. Altered mental status. PROCEDURES: Left heart catheterization with placement of a drug-eluting stent in the right coronary artery via the femoral approach. HISTORY OF PRESENT ILLNESS: The patient is an 83-year-old white female who was brought to the outpatient department to undergo cardiac catheterization. The patient has a long history of heart murmur. She was found to have evidence of aortic stenosis. The patient complained of fatigue, but denies any chest pain, syncope. She does note lightheadedness. She did note shortness of breath. She had an echocardiogram done recently in April that showed an ejection fraction of 65% with severe aortic stenosis. She has been followed by my partner, Dr. Peña, who recommended cardiac catheterization with consideration of TAVR. PAST MEDICAL HISTORY: Significant for cataract extraction, shoulder surgery, hypertension, hyperlipidemia, chronic kidney disease. She is hard of hearing, skin cancer removed in the past. MEDICATIONS: Include aspirin, Lipitor, Lasix, lisinopril, metoprolol. ALLERGIES: SHE HAD AN ALLERGY TO IODINE CONTRAST AGENTS. PHYSICAL EXAMINATION: VITAL SIGNS: On admission, blood pressure 140/90, pulse 60. CHEST: Clear to auscultation. CARDIAC: Regular rate and rhythm, grade 4 [place] [address] DISCHARGE SUMMARY Name: ZENAIDA RAZACURT Gomez Room: [address] IN [facility].#: [id number] Admission: 08/25/19 Attend Phys: Ladarius Peña MD Discharge: 08/27/19 Date of : 31 Report #: [id number] ABDOMEN: Soft. EXTREMITIES: Had no edema. DIAGNOSTIC STUDIES: ECG, sinus rhythm, left ventricular hypertrophy, repolarization changes. She had a chest x-ray recently that showed chronic interstitial lung markings, normal heart size. CT scan of the head was done in March that showed no acute abnormality. She had an MRA of the carotid arteries on 08/2018 that showed no significant stenosis. LABORATORY DATA: Sodium 141, potassium 4.1, BUN 35, creatinine 1.4, glucose 118. Liver function studies were normal. Cholesterol 165, triglyceride 122, HDL 55, LDL 86. TSH in March was 1.6. Her white blood cell count is 15.3. Her hemoglobin 10.5, platelet count 188,000. HOSPITAL COURSE: The patient was admitted to monitored bed. She underwent left heart catheterization by my partner, Dr. Peña. There was no significant disease in the LAD or circumflex. There was a 95% discrete stenosis in the mid right coronary artery. She was given heparin and Aggrastat and I then placed a single drug-eluting stent in her mid right coronary artery. She tolerated the procedure well. An Angio-Seal was placed at the end of procedure. The patient did become confused during the procedure. She was transferred to the ICU for monitoring. She was noted to be very restless. A Good catheter was placed. She was noted to have a drop in hemoglobin and required a transfusion. CT scan of the abdomen showed evidence of retroperitoneal hemorrhage. She remained at bed rest. She had no further chest pain, leg pain. Prior to discharge, she was ambulating with assistance. She had no further chest pain, shortness of breath. She was discharged with family members for home health. She will continue to see my partner, Dr. Peña in the Cardiology Clinic. She will see Dr. Ramirez for routine medical care. She was referred to [facility] for consideration of TAVR. Her confusion gradually improved. At the time of discharge, she was ambulating with assistance. At time of discharge, she had a blood pressure of 140/90, pulse is 60. She did develop bradycardia during her admission, she was taken off of metoprolol. She was discharged on her home medications that included aspirin 81 mg a day, Lipitor 40 mg a day, iron supplements, Lasix 20 mg a day as needed for swelling, lisinopril 10 mg a day for hypertension. She was taken off of metoprolol because of her bradycardia and she was given Effient 10 mg a day following placement of the stent. At the time of discharge, she is ambulating, had no further complaints. She will need followup hemoglobin after her discharge. She is scheduled to see my nurse practitioner in 1 week for inspection of her groin. She was given an appointment to see [facility] Cardiology for consideration of a TAVR. Her prognosis is guarded due to her advanced age and multiple medical problems. She [address] [place] [address] DISCHARGE SUMMARY Name: ADOLPH RAZA Room: [address] IN .R.#: [id number] Admission: 08/25/19 Attend Phys: Ladarius Peña MD Discharge: 08/27/19 Date of : 33 Report #: [id number] was noted to have chronic anemia did get a transfusion during her hospitalization. <ELECTRONICALLY SIGNED> By: Tl Sun MD, FACC 08/29/19 1251 1424 1555Davihelga Sun MD, FACC /nt
--- NOTE | 2019-08-30 09:53 | CARD ---
[address] [address] CARDIAC CATH REPORT Name: ADOLPH RAZA Jason Room: [address] IN [facility]#: [id number] Admission: 08/25/19 Attend Phys: Ladarius Peña MD Discharge: 08/27/19 Date of : 33 Report #: [id number] THIS REPORT FOR: //name// cc: Kathy Ramirez Linda J. DO ~ APPROVED REPORT Study performed: 08/25/2019 09:09:17 Patient Details Patient Status: Out-Patient Room #: The patient is a 83 year-old female Event Personnel Ladarius Peña Director Counseling Bureau, Tl Sun Oil Spraying Machine Operator, Tia Emmanuel RN Development Analyst, Dre Good Scrub, Shirlene Escobar RTR Monitor Procedures Performed Art Access - R femoral artery, Left Heart Cath w/or w/o Coronaries LHC, NED Place w/wo Plasty Single RCA Hemostasis w/ Angioseal Indication Dyspnea, Valvular heart disease Risk Factors Hypercholesterolemia, Hypertension Admission/Lab Medications/Medications given during procedure Glycoprotein IllbIlla Inhibitors, Heparin Unfract., Hydralazine (Apresoline) IV 10 mg, Solumedrol IV 125 mg, Heparin IV 5000 units, Aggrastat IV bolus 5 ml, Effient PO 60 mg Procedure Narrative The patient was brought electively to the Cardiac Catheterization Laboratory and was prepped and draped in a sterile manner. The right femoral was infiltrated with 2% Lidocaine subcutaneous anesthesia. A 6F [place] sheath was inserted into the right femoral artery. Coronary angiography was performed using coronary diagnostic catheters. The right coronary system was accessed and visualized with a 5F JR4 catheter. The left coronary system was accessed and visualized with a 5F JL4 catheter. The left ventricle was accessed and visualized with a 5F [place] [address] CARDIAC CATH REPORT Name: ADOLPH RAZA Room: [address] IN [facility].#: [id number] Admission: 08/25/19 Attend Phys: Ladarius Peña MD Discharge: 08/27/19 Date of : 33 Report #: [id number] ventricular/Aortic Valve gradient assessed via catheter pullback. Closure device was deployed with a 6 Fr Angioseal STS. The patient tolerated the procedure well and there were no complications associated with the procedure. There was no hematoma. Intraoperative Conscious Sedation Sedation start time: 11:25 Case end Time: 12:00 Versed 1 mg Fluoro Time: 5.9 minutes Dose: DAP 06341 cGycm2 490 mGy Contrast Type and Amount: Visipaque 85 ml Diagnostic Cath Left Main Normal LAD Mild plaquing proximally. There is a 50% narrowing in the midportion of the vessel. The distal vessel is free of significant disease. Diagonal 1 Mild plaquing. No hemodynamically significant stenoses noted. Circumflex A small circumflex artery appears relatively normal. OM1 A first obtuse marginal branch is a branch vessel with a 50% narrowing proximally. Right Coronary The right coronary artery has a 90% stenoses in the midportion. R PDA A right PDA is normal. RPLV A branch right posterior lateral LV branch is normal. Left Ventriculography Left Ventriculography was not performed. Hemodynamics The left ventricular pressure is 192/17 mmHg with a mean of mmHg. The left ventricular end diastolic pressure is 32 mmHg. PCI Technique Lesion Anticoagulation was achieved with Heparin. bolus if iv aggrastat given Percutaneous coronary intervention was performed on the mid right coronary artery. The lesion stenosis prior to intervention was 90% with ONESIMO 3 flow. A 6FR JCR 4 100CM Guide Catheter was used to engage the right ostium. A BMW 190cm Interventional Guidewire was used to cross [place] [address] CARDIAC CATH REPORT Name: ADOLPH RAZA Room: [address] IN [facility].#: [id number] Admission: 08/25/19 Attend Phys: Ladarius Peña MD Discharge: 08/27/19 Date of : 31 Report #: [id number] A Balloon catheter Euphora SC 2.5x6mm was inserted and inflated up to 16atm for 10seconds. Repeat angiography revealed the following post-dilatation results: 30% stenosis. STENT DEPLOYMENT A drug-eluting stent Az RX Stent 2.95R05pt was inserted and inflated up to 12atm for 12seconds. Repeat angiography revealed the following post-stent deployment results: 0% stenosis. Additional Inflation: 13atm for 11seconds. Final angiography reveals 0 % stenosis with ONESIMO 3 flow. Conclusion 1. Significant 90% narrowing in the mid right coronary artery. 2. Moderately elevated left ventricular end-diastolic pressure consistent with acute diastolic heart failure. 3. successful placement of a drug eluting stent in the mid RCA 4. significant systolic gradient of the aortic valve during catheter pullback Recommendations Continue aggressive risk factor modification. Refer for possible TAVR. Medications Administered Prasugrel Diagnostic Cath Approved by: Ladarius Peña MD Date/Time: 08/30/2019 09:24:18 <ELECTRONICALLY SIGNED> By: Tl Sun MD, [facility] 08/30/19 0951 0951Tl Sun MD, [facility] /INF
== END 2019-08-27 15:07 | disposition home health service (06) | DRG 246 ==
LOC: M.CL 09:12 → M.TBA-CV 12:08 → M.ICU 15:28
PROVIDERS: Internal Medicine Cardiovascular Disease; ADMIT Internal Medicine Cardiovascular Disease; ATTEND Internal Medicine Cardiovascular Disease
PROC: 027034Z Dilation of Coronary Artery, One Artery with Drug-eluting Intraluminal Device, Percutaneous Approach (ICD-10-PCS; principal; 2019-08-25)
PROC: B2111ZZ Fluoroscopy of Multiple Coronary Arteries using Low Osmolar Contrast (ICD-10-PCS; principal; 2019-08-25)
PROC: 4A023N7 Measurement of Cardiac Sampling and Pressure, Left Heart, Percutaneous Approach (ICD-10-PCS; principal; 2019-08-25)
PROC: 3E083PZ Introduction of Platelet Inhibitor into Heart, Percutaneous Approach (ICD-10-PCS; principal; 2019-08-25)
PROC: 30233N1 Transfusion of Nonautologous Red Blood Cells into Peripheral Vein, Percutaneous Approach (ICD-10-PCS; 2019-08-25)
DX: I25.10 Atherosclerotic heart disease of native coronary artery without angina pectoris (principal); G93.41 Metabolic encephalopathy; I13.0 Hypertensive heart and chronic kidney disease with heart failure and stage 1 through stage 4 chronic kidney disease, or unspecified chronic kidney disease; I50.9 Heart failure, unspecified; I08.0 Rheumatic disorders of both mitral and aortic valves; N18.9 Chronic kidney disease, unspecified; E78.5 Hyperlipidemia, unspecified; R58 Hemorrhage, not elsewhere classified; M81.0 Age-related osteoporosis without current pathological fracture; Z85.828 Personal history of other malignant neoplasm of skin; Z98.49 Cataract extraction status, unspecified eye; Z88.8 Allergy status to other drugs, medicaments and biological substances; Z91.041 Radiographic dye allergy status

== ENCOUNTER 2019-09-21 15:32 | Inpatient (IN) | payer MEDICARE, BC ==
[~2019-09-21] VITALS: Ht 137.2 cm; Wt 49.8 kg
[~2019-09-21 15:32] MED LIST changes: +EFFIENT10 MG PO; +ZITHROMAX250 MG PO
[2019-09-21 15:49] VITALS: BP 145/37
[2019-09-21] MEDS ORDERED: COZAAR 25 MG TA25 M1 PO (15:55)
[2019-09-21 16:25] LABS: ABSOLUTE BASOPHILS 0.2 thou/uL (0.0-0.2); ABSOLUTE EOSINOPHILS 0.3 thou/uL (0.0-0.7); ABSOLUTE LYMPHOCYTES 1.9 thou/uL (0.8-5.3); ABSOLUTE MONOCYTES 0.8 thou/uL (0.0-1.2); ABSOLUTE NEUTROPHILS 5.4 thou/uL (1.6-8.1); BASOPHILS 2.6 %; EOSINOPHILS 3.7 %; HEMATOCRIT 32.1 % (37.0-47.0); LYMPHOCYTES 21.5 %; MCH 32.1 pg (26.0-34.0); MCHC 34.3 g/dL (28.0-37.0); MCV 93.7 fL (80.0-100.0); MONOCYTES 9.6 %; MPV 8.3 fl. (7.2-11.1); NUCLEATED RBCS 0 /100WBC; PLATELET COUNT* 369 thou/uL (150-400); POLYS 62.6 %; RBC 3.42 mil/uL (4.20-5.00); RDW-CV 14.7 % (10.5-14.5); WBC 8.7 thou/uL (4.0-11.0)
[2019-09-21 16:39] LABS: CREATININE 1.9 mg/dL (0.6-1.3); POTASSIUM 4.3 mmol/L (3.5-5.1)
[2019-09-21 16:43] LABS: ALBUMIN 3.9 g/dL (3.4-5.0); TOTAL BILIRUBIN 0.9 mg/dL (<0.1-1.0); TOTAL PROTEIN 7.4 g/dL (6.4-8.2)
[2019-09-21 16:52] LABS: CALCIUM 12.1 mg/dL (8.5-10.1)
[2019-09-21 23:24] VITALS: BP 131/37
[2019-09-21 23:30] VITALS: BP 147/42
[2019-09-22 00:41] LABS: URINE BILIRUBIN NEGATIVE (Negative); URINE BLOOD NEGATIVE (Negative); URINE CLARITY CLEAR; URINE COLOR YELLOW; URINE GLUCOSE-RANDOM NEGATIVE (Negative); URINE KETONES NEGATIVE (Negative); URINE LEUKOCYTES-REFLEX NEGATIVE (Negative); URINE NITRITE-REFLEX NEGATIVE (Negative); URINE PROTEIN NEGATIVE (Negative); URINE UROBILINOGEN 0.2 E.U./dl (0.2-1.0)
[2019-09-22 00:48] LABS: AMP/METHAMP Negative (Negative); BARBITURATES Negative (Negative); BENZODIAZEPINES Negative (Negative); COCAINE Negative (Negative); METHADONE Negative (Negative); OPIATES POSITIVE (Negative); PCP Negative (Negative); THC Negative (Negative)
[2019-09-22 04:00] VITALS: BP 179/44
[2019-09-22] MEDS ORDERED: KLOR-CON 10 ER10 MEQ PO (04:58)
[2019-09-22 08:15] VITALS: BP 185/49
--- NOTE | 2019-09-22 10:53 | EKG ---
[place] [address] ELECTROCARDIOGRAM REPORT Name: ADOLPH RAZA Room: [address] ADM IN .R.#: [id number] Admission: 09/21/19 Attend Phys: Senthil Willams Discharge: Date of : 31 Date of Service: 09/21/19 1602 Report #: [id number] THIS REPORT FOR: //name// [facility] ED Test Date: 2019-09-21 Test Time: 16:02:08 Pat Name: ADOLPH RAZA Department: Room: [facility] Gender: F Laundry Helper: SULAIMAN : 1935 Requested By: Keena Silva Order Number: [id number] MD: Tl Sun Measurements Intervals [place] Rate: 51 P: -33 HI: 198 QRS: 32 QRSD: 108 T: 16 QT: 470 QTc: 433 Interpretive Statements Sinus bradycardia poor r wave progression Borderline ST depression, anterolateral leads Compared to ECG 08/26/2019 03:55:54 ST (T wave) deviation now present Electronically Signed On 09-22-2019 10:53:13 CDT by Tl Sun [email or web address] <ELECTRONICALLY SIGNED> By: Tl Sun MD, [facility] 09/22/19 1053 1602 1602 Tl Sun MD, [facility] /EPI
[2019-09-22 12:02] VITALS: BP 151/46
[2019-09-22 13:46] LABS: ABSOLUTE BASOPHILS 0.1 thou/uL (0.0-0.2); ABSOLUTE EOSINOPHILS 0.3 thou/uL (0.0-0.7); ABSOLUTE LYMPHOCYTES 2.2 thou/uL (0.8-5.3); ABSOLUTE MONOCYTES 0.5 thou/uL (0.0-1.2); BASOPHILS 1.3 %; EOSINOPHILS 4.1 %; HEMOGLOBIN 9.9 gm/dL (12.0-15.0); MCH 32.4 pg (26.0-34.0); MCHC 34.2 g/dL (28.0-37.0); MCV 94.9 fL (80.0-100.0); MONOCYTES 6.6 %; MPV 8.3 fl. (7.2-11.1); NUCLEATED RBCS 0 /100WBC; RBC 3.05 mil/uL (4.20-5.00); RDW-CV 14.4 % (10.5-14.5); WBC 7.1 thou/uL (4.0-11.0)
[2019-09-22 13:47] LABS: PLATELET COUNT* 277 thou/uL (150-400)
[2019-09-22 13:59] LABS: ALBUMIN 3.4 g/dL (3.4-5.0); CREATININE 1.3 mg/dL (0.6-1.3); MAGNESIUM 1.6 mg/dL (1.8-2.4); PHOSPHORUS* 2.8 mg/dL (2.5-4.9); POTASSIUM 3.7 mmol/L (3.5-5.1); TOTAL BILIRUBIN 0.6 mg/dL (<0.1-1.0); TOTAL PROTEIN 6.4 g/dL (6.4-8.2)
--- NOTE | 2019-09-22 15:50 | 2DMMODE ---
[place] [address] 2 D/M-MODE ECHOCARDIOGRAM Name: MARQUISE RAZACURT Gomez Room: [address] IN .R.#: [id number] Admission: 09/21/19 Attend Phys: Senthil Willams Discharge: Date of : 31 Date of Service: 09/22/19 1550 Report #: [id number] THIS REPORT FOR: cc: Kathy Ramirez Linda J. DO Liston, Michael J. MD [facility] ~ APPROVED REPORT Study performed: 09/22/2019 14:26:18 EXAM: Comprehensive 2D, Doppler, and color-flow Echocardiogram Patient Location: In-Patient BSA: 1.34 HR: 59 bpm BP: 151/46 mmHg Other Information Study Quality: Good Indications Aortic Valve Disease CVA/TIA Dizziness and Vertigo Echo Enhancing Agent Indication: Rule out Shunt Agent(s) / Amount(s) Used: Agitated Saline cc 2D Dimensions IVSd: 11.34 (7-11mm) LVOT Diam: 13.75 (18-24mm) LVDd: 40.18 mm PWd: 10.24 (7-11mm) Ascending Ao: 28.97 (22-36mm) LVDs: 25.62 (25-40mm) Aortic Root: 17.36 mm Volumes Left Atrial Volume (Systole) LA ESV Index: 38.60 mL/m2 Aortic Valve AoV Peak Marquise.: 4.56 m/s AO Peak Gr.: 83.28 mmHg LVOT Max P.79 mmHg AO Mean Gr.: 51.10 mmHg LVOT Mean P.50 [place] [address] 2 D/M-MODE ECHOCARDIOGRAM Name: MARQUISE RAZACURT Gomez Room: [address] IN .R.#: [id number] Admission: 09/21/19 Attend Phys: Senthil Willams Discharge: Date of : 31 Date of Service: 09/22/19 1550 Report #: [id number] LVOT Max V: 1.09 m/s AO V2 VTI: 103.50 cm LVOT Mean V: 0.73 m/s LUNA (VTI): 0.42 cm2 LVOT V1 VTI: 29.33 cm AI Stearns: 2.21 m/s2 AI PHT: 432.40 ms Mitral Valve MV Mean Gr.: 3.96 mmHg E/A Ratio: 0.76 MV Decel. Time: 356.37 ms MV E Max Marquise.: 1.09 m/s MV PHT: 103.35 ms MVA (PHT): 2.13 cm2 TDI E/Lateral E': 27.25 E/Medial E': 27.25 Medial E' Marquise.: 0.04 m/s Lateral E' Marquise.: 0.04 m/s Pulmonary Valve PV Peak Marquise.: 1.28 m/s PV Peak Gr.: 6.53 mmHg Tricuspid Valve RAP Estimate: 10.00 mmHg TR Peak Gr.: 57.18 mmHg RVSP: 67.18 mmHg PA Pressure: 67.18 mmHg Left Ventricle The left ventricle is normal size. There is normal LV segmental wall motion. Mild concentric left ventricular hypertrophy. Left ventricular systolic function is vigorous. LVEF is >70%. Grade I - abnormal relaxation pattern. Right Ventricle The right ventricle is normal size. The right ventricular systolic function is normal. Atria The left atrium size is normal. Interatrial septum not well visualized. Injection of bubbles documented no interatrial shunt. The right atrium size is normal. Aortic Valve The Aortic valve is sclerotic. Mild to moderate aortic regurgitation. Severe aortic stenosis[place] [address] 2 D/M-MODE ECHOCARDIOGRAM Name: ADOLPH RAZA Room: [address] IN .R.#: [id number] Admission: 09/21/19 Attend Phys: Senthil Willams Discharge: Date of : 31 Date of Service: 09/22/19 1550 Report #: [id number] Mitral valve leaflets are calcified. Mitral valve leaflets are thickened. There is mitral annular calcification. Mild to moderate mitral regurgitation. Moderate mitral stenosis. Tricuspid Valve The tricuspid valve is normal in structure. Mild tricuspid regurgitation. The RVSP is 35-40 mmHg. Pulmonic Valve Mild pulmonic regurgitation. Pericardium There is no pericardial effusion. <Conclusion> The left ventricle is normal size. Mild concentric left ventricular hypertrophy. Left ventricular systolic function is vigorous. LVEF is >70%. Grade I - abnormal relaxation pattern. The Aortic valve is sclerotic. Mild to moderate aortic regurgitation. Severe aortic stenosis. Mitral valve leaflets are calcified. Mitral valve leaflets are thickened. There is mitral annular calcification. Mild to moderate mitral regurgitation. Mild tricuspid regurgitation. The RVSP is 35-40 mmHg. Mild pulmonic regurgitation. Interatrial septum not well visualized. Injection of bubbles documented no interatrial shunt. <ELECTRONICALLY SIGNED> By: Ladarius Peña MD, FACC 09/22/19 1550 1550 1550 Ladarius Peña MD, FACC /INF
[2019-09-22 19:30] VITALS: BP 181/52
[2019-09-23] VITALS (7 sets, daily range): BP systolic 122–197; BP diastolic 41–56
[2019-09-23 04:20] LABS: ABSOLUTE BASOPHILS 0.1 thou/uL (0.0-0.2); ABSOLUTE EOSINOPHILS 0.4 thou/uL (0.0-0.7); ABSOLUTE LYMPHOCYTES 2.8 thou/uL (0.8-5.3); ABSOLUTE MONOCYTES 0.6 thou/uL (0.0-1.2); ABSOLUTE NEUTROPHILS 3.8 thou/uL (1.6-8.1); BASOPHILS 1.2 %; EOSINOPHILS 5.5 %; HEMATOCRIT 26.8 % (37.0-47.0); LYMPHOCYTES 36.4 %; MCH 32.4 pg (26.0-34.0); MCHC 33.6 g/dL (28.0-37.0); MCV 96.6 fL (80.0-100.0); MPV 7.9 fl. (7.2-11.1); NUCLEATED RBCS 0 /100WBC; PLATELET COUNT* 247 thou/uL (150-400); POLYS 48.9 %; RBC 2.77 mil/uL (4.20-5.00); RDW-CV 14.9 % (10.5-14.5); WBC 7.8 thou/uL (4.0-11.0)
[2019-09-23 04:44] LABS: CALCIUM 9.8 mg/dL (8.5-10.1); CREATININE 1.3 mg/dL (0.6-1.3); MAGNESIUM 1.5 mg/dL (1.8-2.4); PHOSPHORUS* 2.6 mg/dL (2.5-4.9); POTASSIUM 3.5 mmol/L (3.5-5.1); TOTAL BILIRUBIN 0.5 mg/dL (<0.1-1.0); TOTAL PROTEIN 5.7 g/dL (6.4-8.2)
[2019-09-23 06:42] LABS: CREATININE 1.3 mg/dL (0.6-1.3); PHOSPHORUS* 2.7 mg/dL (2.5-4.9)
--- NOTE | 2019-09-23 10:17 | CON ---
[address] [address] CONSULTATION Name: LUZ MARINAZENAIDACURT Gomez Room: [address] IN M.R.#: [id number] Admission: 09/21/19 Attend Phys: Estefania Dewitt Discharge: Date of : 31 Report #: [id number] THIS REPORT FOR: //name// cc: Kathy Ramirez Linda J. DO ~ THIS REPORT FOR: //name// CC: Kathy Willams DATE OF SERVICE: 09/22/2019 REQUESTING PHYSICIAN: Senthil Willams DO REASON FOR CONSULTATION: Hypercalcemia. HISTORY OF PRESENT ILLNESS: The patient is a very pleasant 83-year-old female with medical history of chronic kidney disease stage 3, who follows with Dr. Joshi, who is my partner. The patient presents with complaints of weakness and dizziness, was found to be hypercalcemic and her creatinine went up from baseline around 1.5-1.9. She was started on IV fluids. Repeat labs are pending. PAST MEDICAL HISTORY: Significant for: 1. Chronic kidney disease stage 3, baseline creatinine 1.4-1.5. 2. History of secondary hyperparathyroidism. She is on calcitriol. She also was taking some calcium carbonate once a day. 3. Also has history of TIA. 4. History of CHF. SOCIAL HISTORY: No tobacco. No alcohol abuse. FAMILY HISTORY: Noncontributory. REVIEW OF SYSTEMS: Difficult to obtain. She is a very poor historian. PHYSICAL EXAMINATION: GENERAL: Awake, alert. VITAL SIGNS: Blood pressure 150/46, heart rate 59, afebrile. HEENT: Pupils are round. NECK: Supple. LUNGS: Clear. CARDIOVASCULAR: Regular rate. ABDOMEN: Soft. LOWER EXTREMITIES: [place] [address] CONSULTATION Name: LUZ MARINAADOLPH Gomez Room: [address] IN [facility].#: [id number] Admission: 09/21/19 Attend Phys: Estefania Dewitt Discharge: Date of : 33 Report #: [id number] ASSESSMENT: 1. Hypercalcemia, probably due to mild dehydration. Also, she was taking calcitriol and she is on Tums. 2. Chronic kidney disease stage 3. 3. Acute kidney injury could be due to mild hypercalcemia and volume depletion. PLAN: 1. Gentle hydration. 2. Hold her Tums and calcitriol for now. 3. Check her SPEP, UPEP ____. <ELECTRONICALLY SIGNED> By: Philipp Martinez MD 09/23/19 1017 1408 1500Philipp Martinez MD /nt
[2019-09-24] VITALS: BP 143/46
[2019-09-24 04:00] VITALS: BP 157/38
[2019-09-24 08:00] VITALS: BP 182/44
[2019-09-24] MEDS ORDERED: TESSALON PERLE100 MG PO (11:39)
[2019-09-24] MEDS ORDERED: ROBITUSSIN AC Liquid PO (11:39)
[2019-09-24] MEDS ORDERED: VENTOLIN HFA 1818 GM INH (11:44)
[2019-09-24 12:00] VITALS: BP 180/45
[2019-09-26 21:05] LABS: GLOBULIN TOTAL 2.7 g/dL (2.2-3.9); M-SPIKE 0.1 g/dL (Not Observed)
--- NOTE | 2019-09-29 17:53 | CON ---
[facility] [address] [place] [address] CONSULTATION Name: ZENAIDA RAZACURT Gomez Room: [address] IN M.R.#: [id number] Admission: 09/21/19 Attend Phys: Estefania Dewitt Discharge: 09/24/19 Date of : 31 Report #: [id number] THIS REPORT FOR: //name// cc: Kathy Ramirez Linda J. DO ~ THIS REPORT FOR: //name// CC: Kathy Willams DATE OF SERVICE: 09/22/2019 HISTORY OF PRESENT ILLNESS: This is an 83-year-old female patient who was evaluated by me for dizziness. The dizziness started yesterday and she was not able to walk and she was very wobbly according to the daughter. It started spontaneously without any trauma and she is still unable to walk. She has been feeling weak since her cardiac cath according to the patient. She is not complaining of any active chest pain at the moment. She did have a stent placed in. She does have a history of aortic stenosis. REVIEW OF SYSTEMS: A 14-point review of system was carried out. She is hard of hearing. She usually does not know the month and the date. Her son and [id number] lives with her. She has seen Nephrology in the past. Her creatinine is still 1.9. I reviewed her old records. I had seen this patient in 2019 and at that time, she had presented with transient ischemic attack like symptoms, but MRI was okay. She is hard of hearing, but is not complaining of any new visual, cardiac, respiratory, GI, , musculoskeletal, constitutional, dermatological, hematological, psychiatric, throat, allergic symptom associated with present symptomatology. PAST MEDICAL HISTORY: Positive for blood pressure, coronary artery problems and possible TIA. FAMILY HISTORY: Noncontributory. SOCIAL HISTORY: She does not abuse alcohol. PHYSICAL EXAMINATION: Indicates she does not know what month or day it is, but she knew what hospital she was in. She did not know what date it is. Her coordination is significantly impaired. Her speech looks intact. Fund of knowledge is diminished. Cranial nerve examination 2-12 does not appear to be showing any abnormality. Strength, sensation, reflexes and tone is symmetrical. No cerebellar sign. I could not look at the fundus. Reflexes are somewhat diminished. There is no edema. She does have a murmur in the heart, but she also has a history of aortic stenosis, no respiratory difficulty. Blood pressure is 151/46, respirations 17, pulse is 59, temperature is 98.6. [place] [address] CONSULTATION Name: ZENAIDA RAZACURT Gomez Room: [address] IN M.R.#: [id number] Admission: 09/21/19 Attend Phys: Estefania Dewitt Discharge: 09/24/19 Date of : 31 Report #: [id number] LABORATORY DATA: Hemoglobin is 11.0. GFR is only 25. She did have a B12 level done and TSH done this year and they were unremarkable. IMPRESSION: The patient's symptom most likely non-neurological but posterior fossa etiology needs to be excluded. I will suggest doing an MRI and MRA because her symptoms are so profound that she could not even walk. She is having systemic problem. Her creatinine is high. She does have a history of aortic stenosis, which can cause both strokes as well as syncope and that may have to be addressed by yourself. Neurologically, we will await the MRI and MRA and see what that shows and decide about further management. <ELECTRONICALLY SIGNED> By: Joel Plunkett MD 09/29/19 1753 1229 1301Parsam Plunkett MD /nt
== END 2019-09-24 15:00 | disposition home health service (06) | DRG 682 ==
LOC: M.ERS 15:32 → M.TBA-ER 17:01 → M.2W 17:01
PROVIDERS: Internal Medicine Nephrology; Physician Assistant; ADMIT Internal Medicine; ATTEND Internal Medicine
DX: N17.0 Acute kidney failure with tubular necrosis (principal); G93.41 Metabolic encephalopathy; I13.0 Hypertensive heart and chronic kidney disease with heart failure and stage 1 through stage 4 chronic kidney disease, or unspecified chronic kidney disease; I50.32 Chronic diastolic (congestive) heart failure; E86.0 Dehydration; E83.52 Hypercalcemia; F03.90 Unspecified dementia, unspecified severity, without behavioral disturbance, psychotic disturbance, mood disturbance, and anxiety; E78.5 Hyperlipidemia, unspecified; M81.0 Age-related osteoporosis without current pathological fracture; E86.9 Volume depletion, unspecified; N18.3 Chronic kidney disease, stage 3 (moderate); I08.0 Rheumatic disorders of both mitral and aortic valves; I25.2 Old myocardial infarction; Z90.49 Acquired absence of other specified parts of digestive tract; Z85.038 Personal history of other malignant neoplasm of large intestine; Z79.82 Long term (current) use of aspirin; Z79.899 Other long term (current) drug therapy; Z88.1 Allergy status to other antibiotic agents; Z91.041 Radiographic dye allergy status; Z88.7 Allergy status to serum and vaccine; Z88.8 Allergy status to other drugs, medicaments and biological substances; Z91.048 Other nonmedicinal substance allergy status; Z86.73 Personal history of transient ischemic attack (TIA), and cerebral infarction without residual deficits; Z98.49 Cataract extraction status, unspecified eye